=== PATIENT | female | born 1940 | race Caucasian/White ===

== ENCOUNTER 2022-04-04 12:44 | Inpatient (IN) | payer MEDICARE, MEDICAID ==
[~2022-04-04] VITALS: Ht 157.5 cm; Wt 58.5 kg
[2022-04-04] MEDS ORDERED: LORazepam 2 MG/ML VIAL ONE (12:50)
[2022-04-04 12:56] VITALS: BP_SYST 119
--- NOTE | 2022-04-04 12:56 | NUR ---
Placed in room 01 . Placed on athletic monitor, blood pressure machine and pulse oximeter. To gown for exam. Side rails up. Report given to NELLA Mares
[2022-04-04] MEDS ORDERED: LORazepam 2 MG/ML VIAL IVP ONE (13:00)
--- NOTE | 2022-04-04 13:00 | NUR ---
PATIENT BIBA FROM HOME WITH SEIZURE /SHAKING SINCE THIS MORNING, PLACE IN ROOM 1 ON LYFT DRIVER, EDP AT BEDSIDE FOR INITIAL ASSESSMENT, WILL CONTINUE TO MONITOR.
--- NOTE | 2022-04-04 13:15 | NUR ---
PATIENT WITH BLOOD IN MOUTH INDICATION OF BITE.
[2022-04-04] MEDS ORDERED: LEVO88TA5 PO (13:32)
[2022-04-04] MEDS ORDERED: MIRT-91 PO (13:32)
[2022-04-04] MEDS ORDERED: RIFA550T5 PO (13:32)
[2022-04-04] MEDS ORDERED: LIP40 PO (13:32)
[2022-04-04] MEDS ORDERED: LACT1TAB6 PO (13:32)
[2022-04-04] MEDS ORDERED: FERR-69 PO (13:32)
[2022-04-04] MEDS ORDERED: INSU100V38 SQ (13:32)
[2022-04-04] MEDS ORDERED: MELA5TAB12 PO (13:32)
[2022-04-04] MEDS ORDERED: FISH1CAP18 PO (13:32)
[2022-04-04] MEDS ORDERED: CYAN-25 PO (13:32)
[2022-04-04] MEDS ORDERED: MAGN400T10 PO (13:32)
[2022-04-04] MEDS ORDERED: CHOL100038 PO (13:32)
[2022-04-04] MEDS ORDERED: CIPR500T5 PO (13:32)
[2022-04-04] MEDS ORDERED: PANT20TA2 PO (13:32)
[2022-04-04] MEDS ORDERED: DICLOFENAC 1% TP (13:32)
[2022-04-04] MEDS ORDERED: GABA-529 PO (13:32)
[2022-04-04] MEDS ORDERED: LACT10SO6 PO (13:32)
[2022-04-04] MEDS ORDERED: ACET325T PO (13:32)
--- NOTE | 2022-04-04 13:32 | NUR ---
Medication reconciliation completed with information provided by LIST BROUGHT IN BY PT. Any prior medication reconciliation on file was reviewed and corrected.
--- NOTE | 2022-04-04 13:34 | NUR ---
PATIENT REMAINS IN BED ON CROSSING GUARD, WILL CONTINUE TO MONITOR.
[2022-04-04 13:37] LABS: BILIRUBIN,URINE NEGATIVE (NEGATIVE); BLOOD, URINE NEGATIVE (NEGATIVE); CLARITY/URINE CLEAR (CLEAR); COLOR,URINE YELLOW (YELLOW); GLUCOSE,URINE NEGATIVE (NEGATIVE); KETONES,URINE NEGATIVE (NEGATIVE); LEUKOCYTE ESTERASE ,URINE NEGATIVE (NEGATIVE); NITRITE, URINE NEGATIVE (NEGATIVE); PH,URINE 5.5 (5.0-8.0); PROTEIN URINE NEGATIVE (NEGATIVE); UROBILINOGEN,URINE 0.2 (0.2-1.0)
[2022-04-04 13:40] LABS: ANION GAP 9 (5-15); CALCIUM 8.3 mg/dL (8.4-11.0); CHLORIDE 106 mmol/L (98-107); CREATININE 2.04 mg/dL (0.55-1.30); GLUCOSE 117 mg/dL (70-99); UREA NITROGEN, BLOOD 28 mg/dL (8-21)
[2022-04-04 13:42] LABS: BASOPHILS % (AUTO) 0.5 % (0.0-2.0); EOSINOPHILS # (AUTO) 0.2 K/uL (0.0-0.4); EOSINOPHILS % (AUTO) 3.4 % (0.0-4.0); HEMATOCRIT 28.9 % (36-48); HEMOGLOBIN 9.8 g/dL (12.0-16.0); LYMPHOCYTES # (AUTO) 1.9 K/uL (1.0-5.5); LYMPHOCYTES % (AUTO) 32.8 % (20.5-51.5); MEAN CORPUSCULAR HEMOGLOBIN 38 pg (27-31); MEAN CORPUSCULAR HGB CONC 34 % (32-36); MEAN CORPUSCULAR VOLUME 111 fL (79.0-98.0); MONOCYTES # (AUTO) 0.5 K/uL (0.0-1.0); MONOCYTES % (AUTO) 8.5 % (1.7-9.3); NEUTROPHILS # (AUTO) 3.2 K/uL (1.8-7.7); NEUTROPHILS % (AUTO) 54.8 % (40.0-70.0); PLATELET COUNT (AUTO) 84 K/uL (130-430); RED CELL DISTRIBUTION WIDTH 16.8 % (9.0-15.0); WHITE BLOOD COUNT (AUTO) 5.9 K/uL (4.8-10.8)
[2022-04-04] MEDS ORDERED: NACL 0.9% 1,000 ML IV ONE ×2 (13:45→18:00)
--- NOTE | 2022-04-04 13:46 | NUR ---
X-RAY AT BEDSIDE.
[2022-04-04 13:47] LABS: ALANINE AMINOTRANSFERASE 21 U/L (12-78); ALBUMIN 2.6 g/dL (3.4-4.8); ASPARTATE AMINOTRANSFERASE 39 U/L (10-37); TOTAL BILIRUBIN 1.1 mg/dL (0.0-1.0)
[2022-04-04 13:53] LABS: BARBITURATE, URINE NEGATIVE (NEG <=200); BENZODIAZEPINE, URINE NEGATIVE (NEG <=150); CANNABINOID, URINE NEGATIVE (NEG <=50); COCAINE, URINE NEGATIVE (NEG <=150); METHAMPHETAMINES SCREEN,URINE NEGATIVE (NEG <=500); OPIATE, URINE NEGATIVE (NEG <=100); PHENCYCLIDINE SCREEN,URINE NEGATIVE (NEG <=25); UR TRICYCLIC ANTIDEPRESSANTS NEGATIVE (NEG <=300); URINE AMPHETAMINE NEGATIVE (NEG <=500); URINE METHADONE NEGATIVE (NEG <=200); URINE OXYCODONE SCREEN NEGATIVE (NEG <=100); URINE PROPOXYPHENE SCREEN NEGATIVE (NEG <=300)
[2022-04-04] MEDS ORDERED: FLUMAZENIL 0.1 MG/ML IVP ONE (14:00)
[2022-04-04] MEDS ORDERED: cefTRIAXone 1 GM IVPB PREMIX 50 ML IV ONE (14:15)
--- NOTE | 2022-04-04 17:27 | NUR ---
DAUGHTER AT BEDSIDE, AWAITING FOR EDP FOR DISPOSITION, WILL CONTINUE TO MONITOR.
--- NOTE | 2022-04-04 17:45 | NUR ---
CALL BACK FROM [place].
[2022-04-04] MEDS ORDERED: 0.45% NACL 1,000 ML IV ONE (18:00)
--- NOTE | 2022-04-04 18:16 | NUR ---
PATIENT ADMITTED TO DR MARTEL TO TELE.
--- NOTE | 2022-04-04 18:17 | NUR ---
Admit bed requested Patient will be admitted to care of . Admitted to TELE unit. Diagnosis HEPATIC ENCEPHALOPATHY Inpatient (Yes or No) YES Observation (Yes or No) NO Orientation concerns or request close to nursing station (Yes or No) Covid Status NEGATIVE On vent or bipap NO Isolation requirementNO Needs a sitter NO From Home (Yes or if No enter name of facility) YES Requires Dialysis (Yes or No)NO Med Rec Completed (Yes of No) Y
[2022-04-04 19:23] LABS: TRIGLYCERIDES 82 mg/dL (30-150)
[2022-04-04 19:24] LABS: CHOLESTEROL 82 mg/dL (<200); HDL CHOLESTEROL 41 mg/dL (>55); LDL CHOLESTEROL 35 mg/dL (<100)
[2022-04-04 22:30] VITALS: BP_SYST 154
--- NOTE | 2022-04-04 22:38 | NUR ---
Patient will be admitted to care of MD Mccarthy. Admitted to TELE unit. Will go to room 103B. Complete and up to date summary report printed. SBAR report given at bedside to NELLA Voss with opportunity for questions.
--- NOTE | 2022-04-04 22:41 | NUR ---
ADMISSION NOTE Received patient from ER via gurney. Patient admitted with diagnosis of HEPATIC ENCEPHALOPATHY. Patient is awake, alert, oriented X 2. Patient oriented to hospital room, call light, toileting, pain management and safety-teach back done. Patient informed that their room number is 103B. Personal belongings checked and Belongings List documented. Call light within reach.
[2022-04-04 22:42] VITALS: BP_SYST 154
--- NOTE | 2022-04-04 23:22 | NUR ---
CONSULTATION PAGED/CALLED Reason for Consultation: CIRRHOSIS Person Who was Notified: DAVINA Consulting Physician: ADRIAN WONG IS BROILER MANAGER Plant Sprayer Specialty: Ordering Physician: DELONTE
--- NOTE | 2022-04-04 23:23 | NUR ---
CONSULTATION PAGED/CALLED Reason for Consultation: CIRRHOSIS Person Who was Notified: DAVINA Consulting Physician: TERRI Caballero Junior Account Executive Specialty: Ordering Physician: DELONTE
--- NOTE | 2022-04-04 23:56 | NUR ---
PT DAUGHTER CELL # ELIEL TAPAN: [phone]
[2022-04-05] VITALS: BP_SYST 149
[2022-04-05 04:00] VITALS: BP_SYST 150
[2022-04-05] MEDS ORDERED: D5W 1,000 ML IV PRN (06:45)
[2022-04-05] MEDS ORDERED: DEXTROSE 50% JECT 50 ML DISP.SYRIN IVP PRN (06:45)
[2022-04-05] MEDS ORDERED: GLUCOSE (DEXTROSE) ORAL GEL -Adults PO PRN (06:45)
[2022-04-05 07:15] LABS: BASOPHILS % (AUTO) 0.5 % (0.0-2.0); EOSINOPHILS # (AUTO) 0.1 K/uL (0.0-0.4); EOSINOPHILS % (AUTO) 2.5 % (0.0-4.0); HEMATOCRIT 28.3 % (36-48); HEMOGLOBIN 9.6 g/dL (12.0-16.0); LYMPHOCYTES % (AUTO) 19.8 % (20.5-51.5); MEAN CORPUSCULAR HEMOGLOBIN 38 pg (27-31); MEAN CORPUSCULAR HGB CONC 34 % (32-36); MEAN CORPUSCULAR VOLUME 112 fL (79.0-98.0); MONOCYTES # (AUTO) 0.3 K/uL (0.0-1.0); MONOCYTES % (AUTO) 6.2 % (1.7-9.3); NEUTROPHILS # (AUTO) 3.7 K/uL (1.8-7.7); PLATELET COUNT (AUTO) 72 K/uL (130-430); RED BLOOD CELL COUNT(AUTO) 2.52 MIL/uL (4.2-6.2); RED CELL DISTRIBUTION WIDTH 16.8 % (9.0-15.0); WHITE BLOOD COUNT (AUTO) 5.2 K/uL (4.8-10.8)
[2022-04-05 07:47] LABS: ALANINE AMINOTRANSFERASE 23 U/L (12-78); ALBUMIN 2.5 g/dL (3.4-4.8); ANION GAP 10 (5-15); ASPARTATE AMINOTRANSFERASE 43 U/L (10-37); CHLORIDE 113 mmol/L (98-107); CREATININE 1.23 mg/dL (0.55-1.30); GLUCOSE 114 mg/dL (70-99); TOTAL BILIRUBIN 0.9 mg/dL (0.0-1.0); UREA NITROGEN, BLOOD 23 mg/dL (8-21)
[2022-04-05 08:00] VITALS: BP_SYST 126
--- NOTE | 2022-04-05 08:00 | NUR ---
Initial Notes Patient is Aox2. Confused. resting and awake. No ss of distress noted. Breathing is even and nonlabored, on room air. Denies pain. No SOB noted. No facial grimace noted. Patient is NPO pending swallow evaluation. IV to right hand patent. 20G. Bed is locked, alarm on, and at lowest position. Call light within reach.
[2022-04-05] MEDS: LACTULOSE 20 GM/30 ML UDC PO SCH ×4 (09:00→20:44)
[2022-04-05 10:03] LABS: CHOLESTEROL 95 mg/dL (<200); HDL CHOLESTEROL 47 mg/dL (>55); LDL CHOLESTEROL 38 mg/dL (<100); TRIGLYCERIDES 83 mg/dL (30-150)
[2022-04-05] MEDS: RIFAXIMIN 550 MG TABLET PO ONE ×2 (10:22→12:46)
[2022-04-05 11:24] VITALS: BP_SYST 124
--- NOTE | 2022-04-05 11:45 | NUR ---
Notes Blood glucose was 93 mg/ dL. No coverage needed. Iv patent. Patient is resting. No ss of distress noted. remains NPO. Safety precautions in place and call light within reach.
--- NOTE | 2022-04-05 12:12 | NUR ---
Notes Dr. Soler came to see patient at bedside. New orders received. soil field technician at bedside.
[2022-04-05] MEDS: D5NS 1,000 ML IV SCH (12:45)
--- NOTE | 2022-04-05 13:00 | NUR ---
Notes Ultrasound complete. Patient has been repositioned. HOB elevated. Bedside swallow evaluation. Patient tolerated well. No cough when taking a sip of water from spoon, cup, and straw. Remains NPO. IVF running. Daughter at bedside. Educated daughter on reason for NPO. Family verbalized understanding. Daughter wants mom to be Modified Code Status, DNI. Paperwork filled out and in chart.
[2022-04-05] MEDS ORDERED: HYDROcodone/ACETAMIN 5-325 MG TAB (NORCO/ VICODIN) PO PRN ×2 (15:15→16:15)
[2022-04-05 15:31] VITALS: BP_SYST 113
--- NOTE | 2022-04-05 16:08 | NUR ---
CONSULTATION PAGED REASON FOR CONSULTATION:PACEMAKER EVAL WAS CONSULT CALLED?Y PERSON WHO WAS NOTIFIED:NAYELI CONSULTING PHYSICIAN:SHU TORRES BENCH PRECISION ASSEMBLER SPECIALTY:CARDIO BENCH PRECISION ASSEMBLER PHONE NUMBER:[phone] REQUESTING PHYSICIAN:JUNI CASANOVA NP
--- NOTE | 2022-04-05 16:12 | NUR ---
CONSULTATION PAGED REASON FOR CONSULTATION:IFEANYI WAS CONSULT CALLED?Y PERSON WHO WAS NOTIFIED:SPENSER CONSULTING PHYSICIAN:MIRAIM DAVE SUPERVISOR FINISHING DEPARTMENT SPECIALTY:NEPHRO SUPERVISOR FINISHING DEPARTMENT PHONE NUMBER:[phone] REQUESTING PHYSICIAN:JUNI CASANOVA NP
--- NOTE | 2022-04-05 17:00 | NUR ---
Notes Patient is resting, eyes closed. No ss of distress noted. Breathing is even and nonlabored, on room air. Patient denies pain. No SOB noted. IVF running, IV patent. family at bedside. Safety precautions in place and call light within reach.
--- NOTE | 2022-04-05 17:18 | NUR ---
ST EVALUATION COMPLETED. ST TX NOT INDICATED AT THIS TIME. RECOMMEND PO DIET OF PUREE/THIN LIQUIDS. 1:1 FEEDER AND FULL ASPIRATION PRECAUTIONS. CRUSH ALL CRUSHABLE MEDS IN APPLESAUCE.
--- NOTE | 2022-04-05 18:05 | NUR ---
Notes Spoke with Dr. Bruno. aware of patient's status. Per MD, no consultation needed at this time.
--- NOTE | 2022-04-05 19:37 | NUR ---
Closing Notes Patient is eating dinner. No ss of distress noted. breathing is even and non labored, on room air. Patient denies pain. Patient is eating dinner. HOB elevated. IVF running. IV patent. Patient is stable. All needs met. Family at bedside. Bed is locked, alarm on, and at lowest position. Call light within reach. Endorsed care to NELLA Vazquez.
[2022-04-05 20:00] VITALS: BP_SYST 104
[2022-04-05] MEDS: MIRTAZAPINE 15 MG TABLET PO SCH (20:44)
[2022-04-05] MEDS: ATORVASTATIN 20 MG TABLET PO SCH (20:44)
[2022-04-05] MEDS: GABAPENTIN 100 MG CAPSULE PO SCH (20:44)
[2022-04-05] MEDS: RIFAXIMIN 550 MG TABLET PO SCH (20:44)
[2022-04-05] MEDS ORDERED: RIFAXIMIN 550 MG TABLET PO SCH (21:00)
[2022-04-05] MEDS: LORazepam 2 MG/ML VIAL IVP PRN (21:13)
[2022-04-05] MEDS: INSULIN REGULAR, HUMAN 100 UNITS/ML, 3 ML VIAL (humuLIN R) SUBCUT PRN (21:14)
[2022-04-06] VITALS: BP_SYST 110
[2022-04-06 04:00] VITALS: BP_SYST 118
[2022-04-06] MEDS: D5NS 1,000 ML IV SCH ×2 (04:03→16:32)
[2022-04-06] MEDS: LEVOTHYROXINE SODIUM 0.088 MG TABLET PO SCH (06:19)
[2022-04-06] MEDS: INSULIN REGULAR, HUMAN 100 UNITS/ML, 3 ML VIAL (humuLIN R) SUBCUT PRN ×3 (06:44→16:37)
[2022-04-06 07:06] LABS: BASOPHILS % (AUTO) 0.5 % (0.0-2.0); EOSINOPHILS # (AUTO) 0.2 K/uL (0.0-0.4); EOSINOPHILS % (AUTO) 5.5 % (0.0-4.0); HEMATOCRIT 25.8 % (36-48); HEMOGLOBIN 8.6 g/dL (12.0-16.0); MEAN CORPUSCULAR HEMOGLOBIN 38 pg (27-31); MEAN CORPUSCULAR HGB CONC 34 % (32-36); MEAN CORPUSCULAR VOLUME 113 fL (79.0-98.0); MONOCYTES # (AUTO) 0.4 K/uL (0.0-1.0); MONOCYTES % (AUTO) 10.5 % (1.7-9.3); PLATELET COUNT (AUTO) 62 K/uL (130-430); RED BLOOD CELL COUNT(AUTO) 2.27 MIL/uL (4.2-6.2); RED CELL DISTRIBUTION WIDTH 17.5 % (9.0-15.0); WHITE BLOOD COUNT (AUTO) 3.7 K/uL (4.8-10.8)
[2022-04-06 07:15] LABS: ANION GAP 5 (5-15); CALCIUM 7.5 mg/dL (8.4-11.0); CHLORIDE 116 mmol/L (98-107); CREATININE 1.52 mg/dL (0.55-1.30); GLUCOSE 192 mg/dL (70-99); UREA NITROGEN, BLOOD 21 mg/dL (8-21)
[2022-04-06 07:22] LABS: LIPASE 99 U/L (73-393); THYROID STIMULATING HORMONE 0.73 uIu/mL (0.34-4.82)
[2022-04-06 08:00] VITALS: BP_SYST 137
--- NOTE | 2022-04-06 08:00 | NUR ---
Initial Notes Patient is AOx2. Confused. Patient is very sleepy. Arouses to name and tapping shoulder. No ss of distress noted. breathing is even and nonlabored, on 2 L O2 via NC. No SOB noted. Vital signs obtained, as documented. NO facial grimace noted. IVF running. HOb elevated. Bed is locked, alarm on, and at lowest position. Call light within reach.
[2022-04-06 08:44] LABS: NEUTROPHILS % (AUTO) 55.5 % (40.0-70.0)
[2022-04-06] MEDS: MAGNESIUM OXIDE 400 MG TABLET PO SCH (09:00)
[2022-04-06] MEDS: RIFAXIMIN 550 MG TABLET PO SCH ×2 (09:00→21:15)
[2022-04-06] MEDS: LACTULOSE 20 GM/30 ML UDC PO SCH ×3 (09:00→21:15)
[2022-04-06] MEDS: GABAPENTIN 100 MG CAPSULE PO SCH ×2 (09:01→21:15)
[2022-04-06] MEDS: CYANOCOBALAMIN (VITAMIN B-12) 1,000 MCG TABLET PO SCH (09:01)
[2022-04-06] MEDS: CHOLECALCIFEROL (VITAMIN D3) 2,000 UNIT TABLET PO SCH (09:01)
[2022-04-06 11:06] LABS: HEPATITIS A AB, IgM Negative (Negative); HEPATITIS B CORE AB, IgM Negative (Negative); HEPATITIS B SURFACE AG Negative (Negative)
[2022-04-06 11:24] VITALS: BP_SYST 116
--- NOTE | 2022-04-06 12:00 | NUR ---
NOTES PATIENT IS VERY SLEEPY, DID NOT EAT LUNCH. IVF RUNNING. HOB ELEVATED. NO SS OF DISTRESS NOTED. BREATHING IS EVEN AND NONLABORED, ON 2 L O2 VIA NC. SAFETY PRECAUTIONS IN PLACE AND CALL LIGHT WITHIN REACH.
--- NOTE | 2022-04-06 14:28 | NUR ---
MD DR. MARTEL CAME TO SEE PATIENT. MADE OF AWARE OF FAMILY REQUEST FOR MODIFIED CODE STATUS, DO NOT INTUBATE.
[2022-04-06 15:27] VITALS: BP_SYST 125
--- NOTE | 2022-04-06 17:00 | NUR ---
NOTES PATIENT APPEARS TO BE ASLEEP, EYES CLOSED. RESPONDS WHEN TOUCHED OR BY NAME. NO SS OF DISTRESS NOTED. BREATHING IS AND NONLABORED, ON 2 L O2 VIA NC. IVF RUNNING, IV PATENT. BED IS LOCKED, ALARM ON, AND AT LOWEST POSITION. CALL LIGHT WITHIN REACH.
[2022-04-06 20:00] VITALS: BP_SYST 101
--- NOTE | 2022-04-06 20:02 | NUR ---
Closing Notes Patient is resting. Family at bedside. No ss of distress noted. No facial grimace noted. Breathing is even and nonlabored, on 2 L O2 via NC. NO SOB noted. IVF running. IV patent. All needs met. Patient stable. Bed is locked, alarm on, and at lowest position. Call light within reach.
[2022-04-06] MEDS: MIRTAZAPINE 15 MG TABLET PO SCH (21:15)
[2022-04-06] MEDS: ATORVASTATIN 20 MG TABLET PO SCH (21:15)
[2022-04-07] VITALS: BP_SYST 121
[2022-04-07] MEDS: D5NS 1,000 ML IV SCH ×2 (00:05→13:23)
[2022-04-07 04:00] VITALS: BP_SYST 118
[2022-04-07] MEDS: LEVOTHYROXINE SODIUM 0.088 MG TABLET PO SCH (06:11)
[2022-04-07] MEDS: INSULIN REGULAR, HUMAN 100 UNITS/ML, 3 ML VIAL (humuLIN R) SUBCUT PRN ×3 (06:49→18:54)
[2022-04-07 07:39] LABS: BASOPHILS % (AUTO) 0.6 % (0.0-2.0); EOSINOPHILS # (AUTO) 0.2 K/uL (0.0-0.4); EOSINOPHILS % (AUTO) 4.9 % (0.0-4.0); HEMATOCRIT 25.4 % (36-48); HEMOGLOBIN 8.5 g/dL (12.0-16.0); LYMPHOCYTES # (AUTO) 0.9 K/uL (1.0-5.5); LYMPHOCYTES % (AUTO) 26.1 % (20.5-51.5); MEAN CORPUSCULAR HEMOGLOBIN 38 pg (27-31); MEAN CORPUSCULAR HGB CONC 34 % (32-36); MEAN CORPUSCULAR VOLUME 113 fL (79.0-98.0); MONOCYTES # (AUTO) 0.3 K/uL (0.0-1.0); MONOCYTES % (AUTO) 8.4 % (1.7-9.3); PLATELET COUNT (AUTO) 56 K/uL (130-430); RED BLOOD CELL COUNT(AUTO) 2.26 MIL/uL (4.2-6.2); RED CELL DISTRIBUTION WIDTH 17.6 % (9.0-15.0); WHITE BLOOD COUNT (AUTO) 3.4 K/uL (4.8-10.8)
[2022-04-07 08:20] LABS: ALANINE AMINOTRANSFERASE 23 U/L (12-78); ALBUMIN 1.9 g/dL (3.4-4.8); ANION GAP 8 (5-15); ASPARTATE AMINOTRANSFERASE 37 U/L (10-37); CALCIUM 7.7 mg/dL (8.4-11.0); CREATININE 1.49 mg/dL (0.55-1.30); GLUCOSE 202 mg/dL (70-99); PHOSPHORUS 2.4 mg/dL (2.7-4.5); TOTAL BILIRUBIN 0.7 mg/dL (0.0-1.0); UREA NITROGEN, BLOOD 19 mg/dL (8-21)
[2022-04-07 09:04] LABS: CHLORIDE 120 mmol/L (98-107)
[2022-04-07] MEDS: LACTULOSE 20 GM/30 ML UDC PO SCH ×3 (10:20→22:52)
[2022-04-07] MEDS: RIFAXIMIN 550 MG TABLET PO SCH ×3 (10:21→22:59)
[2022-04-07] MEDS: CHOLECALCIFEROL (VITAMIN D3) 2,000 UNIT TABLET PO SCH (10:22)
[2022-04-07] MEDS: GABAPENTIN 100 MG CAPSULE PO SCH ×3 (10:22→22:59)
[2022-04-07] MEDS: MAGNESIUM OXIDE 400 MG TABLET PO SCH (10:23)
[2022-04-07] MEDS: CYANOCOBALAMIN (VITAMIN B-12) 1,000 MCG TABLET PO SCH (10:23)
[2022-04-07 11:39] VITALS: BP_SYST 151
--- NOTE | 2022-04-07 12:26 | NUR ---
Director Embalmer CROP SETTING OUT MACHINE OPERATOR recevied a referral for pt. who has been ref. to [facility], . CROP SETTING OUT MACHINE OPERATOR called Matilde ashley who stated she spoke to Pavithra from [place] and stated the rep was just asking questions re. pt. Matilde stated she was not sure she was going to move forward with hospice and does not even know why Dr. Mccarthy referred pt. to hospice. CROP SETTING OUT MACHINE OPERATOR stated she look into this and get back to her. CROP SETTING OUT MACHINE OPERATOR called and left a message for Pavithra at [facility].
[2022-04-07 15:23] VITALS: BP_SYST 128
--- NOTE | 2022-04-07 19:00 | NUR ---
Dr. Miller, covering for Dr. Pfeiffer made rounds and ordered to decrease the rate of IVF to 100 ml/hr and labs. spoke to Marycarmen, patient's daughter and explained to the abnormal lab values and updated on patient's current condition.
--- NOTE | 2022-04-07 19:30 | NUR ---
Opening note- met pt and family at bedside. pt kiswahili speaking and able to follow command. BUE with edema and ecchymosis. IVF on Rt forearm # 22 g- patent. V/s stable afebrile.
[2022-04-07 20:00] VITALS: BP_SYST 120
[2022-04-07] MEDS: MIRTAZAPINE 15 MG TABLET PO SCH (22:59)
[2022-04-07] MEDS: ATORVASTATIN 20 MG TABLET PO SCH (23:04)
--- NOTE | 2022-04-07 23:13 | NUR ---
CONSULTATION CALLED FOR FOR CONSULT OF HIGH TROPONIN ORDER BY DR. MARTEL SPOKE WITH GLENN
[2022-04-08 00:27] VITALS: BP_SYST 129
[2022-04-08] MEDS: D5NS 1,000 ML IV SCH (03:01)
[2022-04-08] MEDS: LEVOTHYROXINE SODIUM 0.088 MG TABLET PO SCH (06:10)
--- NOTE | 2022-04-08 06:12 | NUR ---
Closing note- pt had 4 times large BM. Pt complaints with medication and she's on lactulose 60 ml oral TID. Straight catheter done to obtain urine sample- 600 ml output. D5NS at 100 ml/hr. IAD on perineal area and sacral area. Given pericare after each BM and applied protective cream. BS- 160 this am.
[2022-04-08 07:07] LABS: BASOPHILS % (AUTO) 0.7 % (0.0-2.0); EOSINOPHILS # (AUTO) 0.2 K/uL (0.0-0.4); EOSINOPHILS % (AUTO) 5.3 % (0.0-4.0); HEMATOCRIT 29.4 % (36-48); HEMOGLOBIN 9.8 g/dL (12.0-16.0); LYMPHOCYTES # (AUTO) 1.1 K/uL (1.0-5.5); MEAN CORPUSCULAR HEMOGLOBIN 38 pg (27-31); MEAN CORPUSCULAR HGB CONC 33 % (32-36); MEAN CORPUSCULAR VOLUME 114 fL (79.0-98.0); MONOCYTES # (AUTO) 0.4 K/uL (0.0-1.0); MONOCYTES % (AUTO) 8.3 % (1.7-9.3); NEUTROPHILS # (AUTO) 2.7 K/uL (1.8-7.7); NEUTROPHILS % (AUTO) 61.7 % (40.0-70.0); PLATELET COUNT (AUTO) 56 K/uL (130-430); RED BLOOD CELL COUNT(AUTO) 2.57 MIL/uL (4.2-6.2); RED CELL DISTRIBUTION WIDTH 18.2 % (9.0-15.0); WHITE BLOOD COUNT (AUTO) 4.4 K/uL (4.8-10.8)
[2022-04-08 07:28] LABS: ALANINE AMINOTRANSFERASE 25 U/L (12-78); ASPARTATE AMINOTRANSFERASE 41 U/L (10-37); CALCIUM 8.3 mg/dL (8.4-11.0); CREATININE 1.47 mg/dL (0.55-1.30); GLUCOSE 186 mg/dL (70-99); TOTAL BILIRUBIN 0.9 mg/dL (0.0-1.0); UREA NITROGEN, BLOOD 16 mg/dL (8-21)
--- NOTE | 2022-04-08 07:31 | NUR ---
PHYSICAL THERAPY CO-SIGN The Physical Therapy Progress Notes documented by Psychodramatist have been reviewed. Reviewed/Co-Signed by: Juan F Carmona Documentation Done by: ANUSHKA WINKLER PTA Addendum: 04/08/22 at 0731 by Juan F Carmona PT Amended: Links added.
[2022-04-08 07:50] LABS: ANION GAP 9 (5-15)
[2022-04-08 07:59] LABS: CHLORIDE 123 mmol/L (98-107)
--- NOTE | 2022-04-08 09:03 | NUR ---
Called Elena Handy and informed of the Chloride level of 123 with order to change IVF. Order made and noted.
[2022-04-08] MEDS: MAGNESIUM OXIDE 400 MG TABLET PO SCH (10:18)
[2022-04-08] MEDS: LACTULOSE 20 GM/30 ML UDC PO SCH ×3 (10:18→21:19)
[2022-04-08] MEDS: RIFAXIMIN 550 MG TABLET PO SCH (10:18)
[2022-04-08] MEDS: CHOLECALCIFEROL (VITAMIN D3) 2,000 UNIT TABLET PO SCH (10:19)
[2022-04-08] MEDS: CYANOCOBALAMIN (VITAMIN B-12) 1,000 MCG TABLET PO SCH (10:19)
[2022-04-08] MEDS: GABAPENTIN 100 MG CAPSULE PO SCH ×2 (10:19→21:22)
[2022-04-08] MEDS: D5W 1,000 ML IV SCH ×2 (10:21→20:06)
[2022-04-08 11:24] VITALS: BP_SYST 135
[2022-04-08] MEDS: INSULIN REGULAR, HUMAN 100 UNITS/ML, 3 ML VIAL (humuLIN R) SUBCUT PRN ×3 (12:36→21:31)
[2022-04-08 15:25] VITALS: BP_SYST 140
--- NOTE | 2022-04-08 18:30 | NUR ---
Elena Handy came and made rounds and ordered labs for AM.
--- NOTE | 2022-04-08 18:45 | NUR ---
Dr. Mccarthy came and made rounds. stated that he will call patient's daughter, Marycarmen to give her an update on patient's condition.
[2022-04-08 20:00] VITALS: BP_SYST 111
--- NOTE | 2022-04-08 20:00 | NUR ---
Opening note- pt's sleeping and grandson at bedside. No s/sx of any distress.
[2022-04-08] MEDS: ATORVASTATIN 20 MG TABLET PO SCH (21:21)
[2022-04-08] MEDS: MIRTAZAPINE 15 MG TABLET PO SCH (21:28)
[2022-04-09 01:15] VITALS: BP_SYST 151
--- NOTE | 2022-04-09 05:57 | NUR ---
Closing note- pt had total 3 times diarrhea at night. Pericare done after each bm and applied barrier cream. Cont D5W at 100 ml/hr.
[2022-04-09] MEDS: D5W 1,000 ML IV SCH ×2 (06:20→18:33)
[2022-04-09] MEDS: LEVOTHYROXINE SODIUM 0.088 MG TABLET PO SCH (06:20)
[2022-04-09] MEDS: INSULIN REGULAR, HUMAN 100 UNITS/ML, 3 ML VIAL (humuLIN R) SUBCUT PRN ×3 (06:57→18:30)
--- NOTE | 2022-04-09 08:00 | NUR ---
RN NOTES AWAKE, WEAK IN APPEARANCE, DENIES ANY PAIN. SR/PACED ON THE MONITOR.
[2022-04-09 08:19] LABS: CREATININE, URINE 132.2 mg/dL
[2022-04-09] MEDS: RIFAXIMIN 550 MG TABLET PO SCH ×2 (08:44→22:55)
[2022-04-09] MEDS: LACTULOSE 20 GM/30 ML UDC PO SCH ×3 (08:44→22:54)
[2022-04-09] MEDS: CHOLECALCIFEROL (VITAMIN D3) 2,000 UNIT TABLET PO SCH (08:46)
[2022-04-09] MEDS: CYANOCOBALAMIN (VITAMIN B-12) 1,000 MCG TABLET PO SCH (08:46)
--- NOTE | 2022-04-09 10:05 | NUR ---
INTERNET SALES CONSULTANT ACSW Shaina contacted Pavithra with [facility] to obtain update on hospice services. According to Pavithra, she was awaiting contact from patient's daughter Marycarmen to obtain decision. ACSW requested ongoing updates when available ACSW will continue to be available as needed
[2022-04-09] MEDS: MAGNESIUM OXIDE 400 MG TABLET PO SCH (10:09)
[2022-04-09 11:30] VITALS: BP_SYST 147
--- NOTE | 2022-04-09 11:30 | NUR ---
RN NOTES DAUGHTER AT BEDSIDE, UPDATED ON PATIENT PRESENT CONDITION.
--- NOTE | 2022-04-09 13:30 | NUR ---
RN NOTES SPOKE DIETARY RE: CALORIE COUNT ORDER, NO DIETITIAN AVAILABLE TODAY. WILL NOTIFY DIETITIAN WHEN AVAILABLE.
[2022-04-09 14:09] LABS: BASOPHILS % (AUTO) 0.5 % (0.0-2.0); EOSINOPHILS # (AUTO) 0.3 K/uL (0.0-0.4); EOSINOPHILS % (AUTO) 5.8 % (0.0-4.0); HEMATOCRIT 28.6 % (36-48); HEMOGLOBIN 9.6 g/dL (12.0-16.0); LYMPHOCYTES # (AUTO) 1.4 K/uL (1.0-5.5); LYMPHOCYTES % (AUTO) 24.9 % (20.5-51.5); MEAN CORPUSCULAR HEMOGLOBIN 38 pg (27-31); MEAN CORPUSCULAR HGB CONC 34 % (32-36); MEAN CORPUSCULAR VOLUME 113 fL (79.0-98.0); MONOCYTES # (AUTO) 0.5 K/uL (0.0-1.0); MONOCYTES % (AUTO) 9.2 % (1.7-9.3); NEUTROPHILS # (AUTO) 3.4 K/uL (1.8-7.7); NEUTROPHILS % (AUTO) 59.6 % (40.0-70.0); PLATELET COUNT (AUTO) 57 K/uL (130-430); RED BLOOD CELL COUNT(AUTO) 2.54 MIL/uL (4.2-6.2); RED CELL DISTRIBUTION WIDTH 17.2 % (9.0-15.0); WHITE BLOOD COUNT (AUTO) 5.6 K/uL (4.8-10.8)
[2022-04-09 14:41] LABS: ALANINE AMINOTRANSFERASE 39 U/L (12-78); ANION GAP 6 (5-15); ASPARTATE AMINOTRANSFERASE 63 U/L (10-37); CALCIUM 8.5 mg/dL (8.4-11.0); CHLORIDE 115 mmol/L (98-107); CREATININE 1.36 mg/dL (0.55-1.30); GLUCOSE 248 mg/dL (70-99); TOTAL BILIRUBIN 1.1 mg/dL (0.0-1.0); UREA NITROGEN, BLOOD 14 mg/dL (8-21)
[2022-04-09 15:23] VITALS: BP_SYST 147
--- NOTE | 2022-04-09 17:21 | NUR ---
ST EVALUATION COMPLETED. ST TX NOT INDICATED AT THIS TIME. RECOMMEND PO DIET OF PUREE/THIN LIQUID. 1:1 FEEDER AND FULL ASPIRATION PRECAUTIONS.
--- NOTE | 2022-04-09 19:00 | NUR ---
RN NOTES SEEN BY DR. MARTEL, WITH ORDERS.
[2022-04-09] MEDS: GABAPENTIN 100 MG CAPSULE PO SCH (22:55)
[2022-04-09] MEDS: MIRTAZAPINE 15 MG TABLET PO SCH (22:55)
[2022-04-09] MEDS: ATORVASTATIN 20 MG TABLET PO SCH (22:56)
[2022-04-10 00:10] VITALS: BP_SYST 134
[2022-04-10] MEDS: D5W 1,000 ML IV SCH ×3 (01:15→21:15)
[2022-04-10] MEDS: LEVOTHYROXINE SODIUM 0.088 MG TABLET PO SCH (07:00)
[2022-04-10 07:01] LABS: BASOPHILS % (AUTO) 0.2 % (0.0-2.0); EOSINOPHILS % (AUTO) 0.5 % (0.0-4.0); HEMATOCRIT 30.3 % (36-48); HEMOGLOBIN 10.2 g/dL (12.0-16.0); LYMPHOCYTES # (AUTO) 0.6 K/uL (1.0-5.5); LYMPHOCYTES % (AUTO) 9.6 % (20.5-51.5); MEAN CORPUSCULAR HEMOGLOBIN 38 pg (27-31); MEAN CORPUSCULAR HGB CONC 34 % (32-36); MEAN CORPUSCULAR VOLUME 113 fL (79.0-98.0); MONOCYTES # (AUTO) 0.5 K/uL (0.0-1.0); MONOCYTES % (AUTO) 8.6 % (1.7-9.3); NEUTROPHILS % (AUTO) 81.1 % (40.0-70.0); PLATELET COUNT (AUTO) 59 K/uL (130-430); RED BLOOD CELL COUNT(AUTO) 2.69 MIL/uL (4.2-6.2); WHITE BLOOD COUNT (AUTO) 6.1 K/uL (4.8-10.8)
--- NOTE | 2022-04-10 07:30 | NUR ---
OPENING NOTE PT IN BED, SLEEPING WITH 2L O2 VIA NC. NO S/S OF PAIN OR DISCOMFORT. CALL LIGHT WITHIN REACH. BED IS LOCKED AND AT LOW POSITION. WILL CONT TO MONITOR
[2022-04-10 07:39] LABS: ANION GAP 11 (5-15); CALCIUM 8.7 mg/dL (8.4-11.0); CHLORIDE 110 mmol/L (98-107); CREATININE 1.49 mg/dL (0.55-1.30); GLUCOSE 277 mg/dL (70-99); UREA NITROGEN, BLOOD 17 mg/dL (8-21)
[2022-04-10 07:40] LABS: ALANINE AMINOTRANSFERASE 55 U/L (12-78); ALBUMIN 2.2 g/dL (3.4-4.8); ASPARTATE AMINOTRANSFERASE 87 U/L (10-37); PHOSPHORUS 2.1 mg/dL (2.7-4.5); TOTAL BILIRUBIN 1.8 mg/dL (0.0-1.0)
[2022-04-10 08:00] VITALS: BP_SYST 139
[2022-04-10 08:31] LABS: RED CELL DISTRIBUTION WIDTH 16.9 % (9.0-15.0)
--- NOTE | 2022-04-10 09:23 | NUR ---
RECEIVED NEW ORDER FROM DR. MARTEL
--- NOTE | 2022-04-10 10:30 | NUR ---
NOTES; UNABLE TO INITIATE PIV X2, CHARGE NURSE CALLED ER. NURSE TO INITIATE PIV. FLUSHED 10CC NS, BLOOD RETURN NOTED. STARTED IFV ORDERED. NO IV INFILTRATION OR INFECTION NOTED.
[2022-04-10] MEDS: INSULIN REGULAR, HUMAN 100 UNITS/ML, 3 ML VIAL (humuLIN R) SUBCUT PRN ×3 (10:58→21:33)
[2022-04-10 11:24] VITALS: BP_SYST 152
--- NOTE | 2022-04-10 11:30 | NUR ---
NOTES; IV PUMP CONSTANTLY SHOWS HIGH PRESSURE. FLUSHED WITH 10CC NS, FELT MODERATE RESISTANCE. NO S/S IV INFILTRATION OR INFECTION NOTED.
[2022-04-10] MEDS: GABAPENTIN 100 MG CAPSULE PO SCH ×2 (12:03→21:32)
[2022-04-10] MEDS: CYANOCOBALAMIN (VITAMIN B-12) 1,000 MCG TABLET PO SCH (12:03)
[2022-04-10] MEDS: MAGNESIUM OXIDE 400 MG TABLET PO SCH (12:03)
[2022-04-10] MEDS: LACTULOSE 20 GM/30 ML UDC PO SCH ×3 (12:03→21:31)
[2022-04-10] MEDS: RIFAXIMIN 550 MG TABLET PO SCH ×2 (12:03→21:31)
[2022-04-10] MEDS: CHOLECALCIFEROL (VITAMIN D3) 2,000 UNIT TABLET PO SCH (12:03)
[2022-04-10] MEDS: ONDANSETRON HCL 4 MG/2 ML VIAL IVP PRN (12:06)
--- NOTE | 2022-04-10 13:30 | NUR ---
NOTES; RECEIVED NEW ORDER FROM :CENTRAL LINE TO IJ REPLACEMENT FOR TPN. ONCE PT GETS TPN, DECREASE IFV TO 60ML/HR.
--- NOTE | 2022-04-10 14:30 | NUR ---
NOTES; SPOKE WITH DR. MARTEL THAT PT'S FAMILY REQUESTS FOR UPDATE. PROVIDED DTR'S PHONE NUMBER TO
--- NOTE | 2022-04-10 14:35 | NUR ---
NOTES; MADE AWARE REGARDING 'S ORDER.
--- NOTE | 2022-04-10 14:47 | NUR ---
pt was seen for dysphagia. pt was able to safely swallow ms diet with thin liquid without s/s of aspiration. recommendation ms diet with thin liquid
--- NOTE | 2022-04-10 15:00 | NUR ---
NOTES; DR. NEVILLE CALLED, HE IS NOT ABLE TO COME IN. HE MAY OR MAY NOT BE ABLE TO COME IN TMR. Addendum: 04/10/22 at 1936 by Siena Goss RN SAID" I AM NOT THE ONLY ONE WHO CAN DO THIS."
--- NOTE | 2022-04-10 15:30 | NUR ---
NOTES; PT NOTIFIED NURSE THAT PT WAS 99% AT ROOM AIR. PT IS NO MORE O2. NO S/S SOB. WILL CONT TO MONITOR
[2022-04-10 15:35] VITALS: BP_SYST 149
--- NOTE | 2022-04-10 16:00 | NUR ---
NOTES; SINCE CANNOT COME IN TO DO CENTRAL LINE PLACEMENT, CALLED . DR. AGUIRRE SAYS HE IS NOT ONCVALERIANO. Addendum: 04/10/22 at 1937 by Siena Goss RN NOTES; SINCE CANNOT COME IN TO DO CENTRAL LINE PLACEMENT TODAY, CALLED . DR. AGUIRRE SAYS HE IS NOT ONCVALERIANO.
--- NOTE | 2022-04-10 19:20 | NUR ---
CLOSING NOTE PT IN BED,RESTING. NO ACUTE DISTRESS NOTED. BED IS LOCKED AND AT LOW POSITION. ENCOURAGED TO USE CALL LIGHT FOR ASSISTANCE. ENDORSED CARE TO TAPE CUTTING MACHINE OPERATOR NURSE.
--- NOTE | 2022-04-10 19:28 | NUR ---
NOTES; CALLED 'S OFFICE. NO COMMUNITY RELATIONS DIRECTOR, FULL VOICE BOX. Addendum: 04/10/22 at 1937 by Siena Goss RN DR.HARRY MARTINEZ.
--- NOTE | 2022-04-10 19:45 | NUR ---
Alert/oriented x3 lower back pain positional refused for pain medication, explained medication plan of care regarding central line insertion indication possible TPN infusion,patient hard stick verbalized understanding, perineal care given repositioned
[2022-04-10 20:02] VITALS: BP_SYST 139
[2022-04-10] MEDS: ATORVASTATIN 20 MG TABLET PO SCH (21:31)
[2022-04-10] MEDS: MIRTAZAPINE 15 MG TABLET PO SCH (21:32)
[2022-04-11 00:09] VITALS: BP_SYST 145
--- NOTE | 2022-04-11 02:15 | NUR ---
GI Had 4x loose stool yellow color . camden anal red rashes wash with soap/water pat/dry,repositioned.
[2022-04-11] MEDS: INSULIN REGULAR, HUMAN 100 UNITS/ML, 3 ML VIAL (humuLIN R) SUBCUT PRN ×4 (06:12→20:56)
[2022-04-11] MEDS: LEVOTHYROXINE SODIUM 0.088 MG TABLET PO SCH (06:15)
[2022-04-11 06:53] LABS: BASOPHILS % (AUTO) 0.3 % (0.0-2.0); EOSINOPHILS # (AUTO) 0.2 K/uL (0.0-0.4); EOSINOPHILS % (AUTO) 3.1 % (0.0-4.0); HEMATOCRIT 29.6 % (36-48); LYMPHOCYTES # (AUTO) 1.2 K/uL (1.0-5.5); MEAN CORPUSCULAR HEMOGLOBIN 38 pg (27-31); MEAN CORPUSCULAR HGB CONC 34 % (32-36); MEAN CORPUSCULAR VOLUME 111 fL (79.0-98.0); MONOCYTES # (AUTO) 0.5 K/uL (0.0-1.0); MONOCYTES % (AUTO) 10.3 % (1.7-9.3); NEUTROPHILS % (AUTO) 61.3 % (40.0-70.0); PLATELET COUNT (AUTO) 56 K/uL (130-430); RED BLOOD CELL COUNT(AUTO) 2.66 MIL/uL (4.2-6.2); RED CELL DISTRIBUTION WIDTH 16.8 % (9.0-15.0)
[2022-04-11 07:53] LABS: ALANINE AMINOTRANSFERASE 49 U/L (12-78); ALBUMIN 2.1 g/dL (3.4-4.8); ANION GAP 8 (5-15); ASPARTATE AMINOTRANSFERASE 65 U/L (10-37); CALCIUM 9.3 mg/dL (8.4-11.0); CHLORIDE 116 mmol/L (98-107); CREATININE 1.37 mg/dL (0.55-1.30); GLUCOSE 262 mg/dL (70-99); TOTAL BILIRUBIN 1.3 mg/dL (0.0-1.0); UREA NITROGEN, BLOOD 19 mg/dL (8-21)
[2022-04-11 08:00] VITALS: BP_SYST 141
[2022-04-11] MEDS: LACTULOSE 20 GM/30 ML UDC PO SCH ×3 (09:00→21:10)
[2022-04-11] MEDS: D5W 1,000 ML IV SCH ×2 (09:01→17:01)
[2022-04-11] MEDS: RIFAXIMIN 550 MG TABLET PO SCH ×2 (09:01→20:48)
[2022-04-11] MEDS: GABAPENTIN 100 MG CAPSULE PO SCH ×2 (09:01→20:48)
[2022-04-11] MEDS: CYANOCOBALAMIN (VITAMIN B-12) 1,000 MCG TABLET PO SCH (09:02)
[2022-04-11] MEDS: CHOLECALCIFEROL (VITAMIN D3) 2,000 UNIT TABLET PO SCH (09:02)
[2022-04-11] MEDS: MAGNESIUM OXIDE 400 MG TABLET PO SCH (09:07)
[2022-04-11] MEDS: ONDANSETRON HCL 4 MG/2 ML VIAL IVP PRN ×2 (09:30→22:37)
--- NOTE | 2022-04-11 10:39 | NUR ---
PAGED REGARDING CENTRAL LINE PLACEMENT.AWAITING CALL BACK
[2022-04-11 11:27] VITALS: BP_SYST 110
--- NOTE | 2022-04-11 14:30 | NUR ---
CALLED, PREPARE SUPPLIES FOR CENTRAL LINE IS ON THE WAY
--- NOTE | 2022-04-11 15:00 | NUR ---
HAVE TALK TO PT'S DTR(ELIEL) SINCE DTR HAS QUESTIONS REGARDING CENTRAL LINE PLACEMENT
[2022-04-11 15:16] VITALS: BP_SYST 120
[2022-04-11] MEDS ORDERED: HEPARIN SODIUM,PORCINE 5,000 UNITS/ML VIAL IVP ONE (15:30)
--- NOTE | 2022-04-11 15:30 | NUR ---
WAS NOT ABLE TO PLACE CENTRAL LINE TO IJ. SEE DR'S PROGRESS NOTE.
--- NOTE | 2022-04-11 16:00 | NUR ---
CHEST X-RAY WAS DONE.
--- NOTE | 2022-04-11 16:37 | NUR ---
SPOKE WITH DTR(ELIEL) UPDATED STATUS.
--- NOTE | 2022-04-11 18:00 | NUR ---
SPOKE WITH DR. YI REGARDING UNSUCCESSFUL CENTRAL LINE TO IJ. NEW ORDER RECEIVED: DIETARY CONSULT.
--- NOTE | 2022-04-11 19:09 | NUR ---
CLOSING NOTE PT SLEEPING IN BED, NO S/S PAIN OR DISCOMFORT. IVF RUNNING ORDERED. NO IV INFILTRATION OR INFECTION NOTED. BED IS LOCKED AND AT LOWEST POSITION. WILL ENDORSE CARE TO ETIQUETTE COACH NURSE.
[2022-04-11 19:34] VITALS: BP_SYST 127
[2022-04-11] MEDS: ATORVASTATIN 20 MG TABLET PO SCH (20:47)
--- NOTE | 2022-04-11 21:00 | NUR ---
Family at the bedside requesting for PICC line consented, difficult IV access unable to reinsert , per daughter Zee to wait for PICC insertion instead of putting another IV cannula , Dr Mccarthy informed
[2022-04-11] MEDS: MIRTAZAPINE 15 MG TABLET PO SCH (21:10)
--- NOTE | 2022-04-11 22:30 | NUR ---
GI Patient feeling nauseated denies any epigastric pain no chest pain , Zofran given , oral care , had loose stool perineal care given.
[2022-04-11 22:44] LABS: INR 1.6 (0.8-1.2); PROTHROMBIN TIME 16.1 SECS (9.5-12.5)
[2022-04-12 00:07] VITALS: BP_SYST 121
[2022-04-12] MEDS: D5W 1,000 ML IV SCH ×2 (03:15→13:15)
[2022-04-12] MEDS: ONDANSETRON HCL 4 MG/2 ML VIAL IVP PRN ×3 (04:23→20:35)
[2022-04-12] MEDS: LEVOTHYROXINE SODIUM 0.088 MG TABLET PO SCH (06:24)
[2022-04-12] MEDS: INSULIN REGULAR, HUMAN 100 UNITS/ML, 3 ML VIAL (humuLIN R) SUBCUT PRN ×3 (06:24→20:53)
--- NOTE | 2022-04-12 06:30 | NUR ---
GI Vomited once no aspiration , oral care given felt better after vomiting, denies any headache no abdominal pain , will monitor.
--- NOTE | 2022-04-12 06:50 | NUR ---
PICC line insertion follow up with the supervisor of way , PICC line nurse will be coming in the morning .
[2022-04-12 06:52] LABS: BASOPHILS % (AUTO) 0.5 % (0.0-2.0); EOSINOPHILS # (AUTO) 0.2 K/uL (0.0-0.4); EOSINOPHILS % (AUTO) 2.6 % (0.0-4.0); HEMATOCRIT 35.8 % (36-48); HEMOGLOBIN 12.1 g/dL (12.0-16.0); LYMPHOCYTES # (AUTO) 1.1 K/uL (1.0-5.5); LYMPHOCYTES % (AUTO) 19.1 % (20.5-51.5); MEAN CORPUSCULAR HEMOGLOBIN 38 pg (27-31); MEAN CORPUSCULAR HGB CONC 34 % (32-36); MEAN CORPUSCULAR VOLUME 112 fL (79.0-98.0); MONOCYTES # (AUTO) 0.5 K/uL (0.0-1.0); MONOCYTES % (AUTO) 8.8 % (1.7-9.3); NEUTROPHILS # (AUTO) 4.1 K/uL (1.8-7.7); PLATELET COUNT (AUTO) 64 K/uL (130-430); RED BLOOD CELL COUNT(AUTO) 3.18 MIL/uL (4.2-6.2); RED CELL DISTRIBUTION WIDTH 17.6 % (9.0-15.0); WHITE BLOOD COUNT (AUTO) 5.9 K/uL (4.8-10.8)
[2022-04-12 07:30] VITALS: BP_SYST 163
--- NOTE | 2022-04-12 07:30 | NUR ---
OPENING NOTE Received patient report from NELLA Mathias. Patient resting in bed. A/O x3, Malay speaking. Breathing is even and unlabored on Room Air. No pain, No SOB, No distress noted at this time. Patient on bedrest and uses bedpan. Patient to have PICC line placed later today for TPN and Blood draw. All needs met at this time, bed is locked in lowest position, call light within reach. Will continue to monitor.
[2022-04-12 07:37] LABS: ALANINE AMINOTRANSFERASE 104 U/L (12-78); ALBUMIN 2.4 g/dL (3.4-4.8); ANION GAP 11 (5-15); ASPARTATE AMINOTRANSFERASE 136 U/L (10-37); CALCIUM 9.6 mg/dL (8.4-11.0); CHLORIDE 109 mmol/L (98-107); CREATININE 1.44 mg/dL (0.55-1.30); GLUCOSE 211 mg/dL (70-99); TOTAL BILIRUBIN 1.7 mg/dL (0.0-1.0); UREA NITROGEN, BLOOD 23 mg/dL (8-21)
[2022-04-12] MEDS: GABAPENTIN 100 MG CAPSULE PO SCH ×2 (08:09→20:40)
[2022-04-12] MEDS: CHOLECALCIFEROL (VITAMIN D3) 2,000 UNIT TABLET PO SCH (08:09)
[2022-04-12] MEDS: CYANOCOBALAMIN (VITAMIN B-12) 1,000 MCG TABLET PO SCH (08:09)
[2022-04-12] MEDS: RIFAXIMIN 550 MG TABLET PO SCH ×2 (08:09→20:40)
[2022-04-12] MEDS: MAGNESIUM OXIDE 400 MG TABLET PO SCH (08:11)
[2022-04-12] MEDS: LACTULOSE 20 GM/30 ML UDC PO SCH ×3 (08:12→20:40)
--- NOTE | 2022-04-12 12:00 | NUR ---
PATIENT ROUNDS Patient resting in bed. Breathing is even and unlabored on Room Air. No pain, No SOB, No distress noted at this time. All needs met at this time, bed is locked in lowest position, call light within reach. Will continue to monitor.
--- NOTE | 2022-04-12 12:36 | NUR ---
PICC RN inserting PICC at this moment.
[2022-04-12] MEDS ORDERED: INSULIN REGULAR, HUMAN 100 UNITS/ML, 3 ML VIAL (humuLIN R) SUBCUT PRN (13:00)
[2022-04-12] MEDS ORDERED: DEXTROSE 50% JECT 50 ML DISP.SYRIN IVP PRN (13:00)
[2022-04-12] MEDS ORDERED: *TPN PER PHARMACY XX PRN (13:00)
[2022-04-12 13:29] VITALS: BP_SYST 152
--- NOTE | 2022-04-12 14:07 | NUR ---
Dietitian Recommendations * Initiate TPN if medically appropriate: -- D30 AA 10% @ 60mL/hr (goal rate) + 20%ILE @ 10mL/hr via Central line Provides: 1680mL total volume, 1502 kcals, 72g AA; GIR 2.6 Meets: 102% lower est kcals, 81% lower est PRO, 99% upper est fluids * Encourage PO intake, as well as TPN * Consider banatrol BID GS, MPH, RD Please refer to RD Assessment for further details Addendum: 04/12/22 at [address] Amended: Links added.
[2022-04-12 18:11] VITALS: BP_SYST 152
--- NOTE | 2022-04-12 18:45 | NUR ---
CLOSING NOTE Patient resting in bed. A/O x3, Yakut speaking. Breathing is even and unlabored on Room Air. No pain, No SOB, No distress noted at this time. Patient on bedrest and uses bedpan. Patient has PICC line to right upper arm for TPN and Blood draw, TPN to start on 04/13/2022. All needs met at this time, bed is locked in lowest position, call light within reach. Will endorse to nightshift nurse.
[2022-04-12 20:00] VITALS: BP_SYST 154
[2022-04-12] MEDS: MIRTAZAPINE 15 MG TABLET PO SCH (20:40)
[2022-04-12] MEDS: ATORVASTATIN 20 MG TABLET PO SCH (20:41)
[2022-04-13 00:16] VITALS: BP_SYST 128
[2022-04-13] MEDS: LEVOTHYROXINE SODIUM 0.088 MG TABLET PO SCH (05:55)
[2022-04-13] MEDS: INSULIN REGULAR, HUMAN 100 UNITS/ML, 3 ML VIAL (humuLIN R) SUBCUT PRN ×3 (05:56→17:41)
[2022-04-13] MEDS: D5W 1,000 ML IV SCH ×2 (05:59→22:43)
--- NOTE | 2022-04-13 07:49 | NUR ---
PHYSICAL THERAPY CO-SIGN The Physical Therapy Progress Notes documented by Master Of Ceremonies have been reviewed. Reviewed/Co-Signed by: Juan F Carmona Documentation Done by: RICHARD LARA PTA Addendum: 04/13/22 at 0749 by Juan F Carmona PT Amended: Links added.
[2022-04-13 08:00] VITALS: BP_SYST 157
--- NOTE | 2022-04-13 08:00 | NUR ---
Initial notes Received patient AAOx3, respiration even and unlabored no signs of distress noted. Right Picc x2 lumen patent. All safety precaution secured continue to monitor.
[2022-04-13 08:03] LABS: ALANINE AMINOTRANSFERASE 65 U/L (12-78); ALBUMIN 2.1 g/dL (3.4-4.8); ANION GAP 9 (5-15); ASPARTATE AMINOTRANSFERASE 62 U/L (10-37); CALCIUM 8.6 mg/dL (8.4-11.0); CHLORIDE 106 mmol/L (98-107); CREATININE 1.54 mg/dL (0.55-1.30); GLUCOSE 246 mg/dL (70-99); PHOSPHORUS 2.6 mg/dL (2.7-4.5); TOTAL BILIRUBIN 1.4 mg/dL (0.0-1.0); TRIGLYCERIDES 78 mg/dL (30-150); UREA NITROGEN, BLOOD 31 mg/dL (8-21)
[2022-04-13] MEDS: CYANOCOBALAMIN (VITAMIN B-12) 1,000 MCG TABLET PO SCH (08:46)
[2022-04-13] MEDS: LACTULOSE 20 GM/30 ML UDC PO SCH ×3 (08:46→20:03)
[2022-04-13] MEDS: MAGNESIUM OXIDE 400 MG TABLET PO SCH (08:46)
[2022-04-13] MEDS: GABAPENTIN 100 MG CAPSULE PO SCH ×2 (08:47→20:04)
[2022-04-13] MEDS: RIFAXIMIN 550 MG TABLET PO SCH ×2 (08:47→20:04)
[2022-04-13] MEDS: CHOLECALCIFEROL (VITAMIN D3) 2,000 UNIT TABLET PO SCH (08:47)
[2022-04-13 11:30] VITALS: BP_SYST 158
--- NOTE | 2022-04-13 11:30 | NUR ---
NETWORK DESIGN ARCHITECT ACSW Shaina contacted [facility] to obtain an update on family moving forward with hospice services. Anat from [facility] was unable to provide update and stated [facility] nurse would be returning call with more information.
--- NOTE | 2022-04-13 12:55 | NUR ---
PHYSICAL THERAPY CO-SIGN The Physical Therapy Progress Notes documented by Electrical Contacts Adjuster have been reviewed. Reviewed/Co-Signed by: Juan F Carmona Documentation Done by: ANUSHKA WINKLER PTA Addendum: 04/13/22 at 1255 by Juan F Carmona PT Amended: Links added.
[2022-04-13] MEDS: ONDANSETRON HCL 4 MG/2 ML VIAL IVP PRN ×3 (14:44→23:31)
--- NOTE | 2022-04-13 14:50 | NUR ---
Patient c/o nausea, medication given
[2022-04-13] MEDS ORDERED: K PHOS 30 MM in NS 250 ML IV ONE (15:15)
[2022-04-13 15:41] VITALS: BP_SYST 146
--- NOTE | 2022-04-13 19:58 | NUR ---
Closing Patient AAOx3, respiration even and unlabored no signs of distress noted. Right Picc x2 lumen patent. All safety precaution secured will endorse.
[2022-04-13 20:00] VITALS: BP_SYST 152
[2022-04-13] MEDS: ATORVASTATIN 20 MG TABLET PO SCH (20:03)
[2022-04-13] MEDS: MIRTAZAPINE 15 MG TABLET PO SCH (20:04)
[2022-04-13] MEDS ORDERED: K PHOS IV SCH ×9 (21:00)
[2022-04-13] MEDS ORDERED: [UNRECOGNIZED DRUG - OTHER] IV SCH ×9 (21:00)
[2022-04-13] MEDS ORDERED: POTASSIUM ACETATE IV SCH ×9 (21:00)
[2022-04-13] MEDS ORDERED: SODIUM ACETATE IV SCH ×9 (21:00)
[2022-04-13] MEDS ORDERED: TPN CENTRAL IV SCH ×9 (21:00)
--- NOTE | 2022-04-13 22:46 | NUR ---
Patient in bed. No acute distress noted. N/V noted prn given. Will continue to monitor.
[2022-04-13] MEDS: LORazepam 2 MG/ML VIAL IVP PRN (23:30)
[2022-04-14 00:47] VITALS: BP_SYST 161
--- NOTE | 2022-04-14 01:33 | NUR ---
Patient's family continues to come out of patient's room requesting ativan for the patient. Ativan administered already. Family member stated patient is trying to get out of the bed. This nurse went in to assess the situation. Patient lying in bed quietly. Will continue to monitor.
[2022-04-14] MEDS: LORazepam 2 MG/ML VIAL IVP PRN (02:55)
[2022-04-14] MEDS: LEVOTHYROXINE SODIUM 0.088 MG TABLET PO SCH (04:24)
[2022-04-14] MEDS: INSULIN REGULAR, HUMAN 100 UNITS/ML, 3 ML VIAL (humuLIN R) SUBCUT PRN ×4 (05:32→20:47)
--- NOTE | 2022-04-14 06:36 | NUR ---
Patient has coffee colored emesis. Will endorse to a.m. shift nurse.
[2022-04-14 07:04] LABS: BASOPHILS % (AUTO) 0.1 % (0.0-2.0); EOSINOPHILS % (AUTO) 0.1 % (0.0-4.0); HEMATOCRIT 31.6 % (36-48); HEMOGLOBIN 10.7 g/dL (12.0-16.0); LYMPHOCYTES % (AUTO) 8.2 % (20.5-51.5); MEAN CORPUSCULAR HEMOGLOBIN 38 pg (27-31); MEAN CORPUSCULAR HGB CONC 34 % (32-36); MEAN CORPUSCULAR VOLUME 111 fL (79.0-98.0); MONOCYTES # (AUTO) 1.2 K/uL (0.0-1.0); MONOCYTES % (AUTO) 10.1 % (1.7-9.3); NEUTROPHILS # (AUTO) 9.7 K/uL (1.8-7.7); NEUTROPHILS % (AUTO) 81.5 % (40.0-70.0); PLATELET COUNT (AUTO) 75 K/uL (130-430); RED BLOOD CELL COUNT(AUTO) 2.85 MIL/uL (4.2-6.2); RED CELL DISTRIBUTION WIDTH 16.8 % (9.0-15.0); WHITE BLOOD COUNT (AUTO) 11.9 K/uL (4.8-10.8)
[2022-04-14 08:00] VITALS: BP_SYST 152
[2022-04-14 08:01] LABS: ALANINE AMINOTRANSFERASE 54 U/L (12-78); ALBUMIN 2.2 g/dL (3.4-4.8); ANION GAP 9 (5-15); ASPARTATE AMINOTRANSFERASE 54 U/L (10-37); CALCIUM 8.9 mg/dL (8.4-11.0); CHLORIDE 107 mmol/L (98-107); GLUCOSE 375 mg/dL (70-99); PHOSPHORUS 3.8 mg/dL (2.7-4.5); UREA NITROGEN, BLOOD 39 mg/dL (8-21)
[2022-04-14] MEDS: GABAPENTIN 100 MG CAPSULE PO SCH ×2 (09:00→21:00)
[2022-04-14] MEDS: CHOLECALCIFEROL (VITAMIN D3) 2,000 UNIT TABLET PO SCH (09:00)
[2022-04-14] MEDS: CYANOCOBALAMIN (VITAMIN B-12) 1,000 MCG TABLET PO SCH (09:00)
[2022-04-14] MEDS: MAGNESIUM OXIDE 400 MG TABLET PO SCH (09:00)
--- NOTE | 2022-04-14 09:00 | NUR ---
PATIENT PRESENTS LETHARGIC, MINIMALLY RESPONSIVE TO, VERBAL STIMULI, PM NURSE REPORTS PATIENT HAD COFFEE GROUND EMESIS AND STOOL DURING LOG CHAIN FEEDER, WBC ELEVATED 11.9, TELEPHONE CALL TO MAKE DR. MARTEL AWARE OF CHANGES, NEW ORDERS OBTAINED FOR BLOOD CX, ID CONSULT AND REPEAT AMMONIA LEVEL
--- NOTE | 2022-04-14 09:00 | NUR ---
MULTIPLE ATTEMPTS AND MAX ENCOURAGEMENT GIVEN FOR PT TREATMENT. RN IN THE ROOM AND ASSISTED WITH TRANSLATION PATIENT SPEAKS JAMAICAN. PATIENT WAS TOO TIRED AND DECLINED EOB ACTIVITIES. ATTEMPTED TO PERFORM PROM ON PATIENT HOWEVER PATIENT REFUSED WHILE SHAKING HER HEAD.
--- NOTE | 2022-04-14 09:16 | NUR ---
CONSULT ID ELEVATED WBC DR. MURRAY [facility] [phone] S/W JASPREET EXCHANGE
[2022-04-14] MEDS: LACTULOSE 20 GM/30 ML UDC PO SCH ×3 (09:36→21:00)
[2022-04-14] MEDS: RIFAXIMIN 550 MG TABLET PO SCH ×2 (09:41→21:00)
--- NOTE | 2022-04-14 09:56 | NUR ---
Nutrition F/U Admitting Diagnosis Hepatic Encephalopathy Reviewed Pertinent Medical/Surgical Hx Medical Record RN Medical History Comment: per EMR: 81yo female who presents to the ER brought in by EMS for altered mental status. Patient was found with elevated ammonia. Patient remains confused unable to give any appropriate history. On initial evaluation, her temperature was 97.8 F and WBC count was 5900. Creatinine was 2.04. Ammonia level was 66. Lactic acid was 1.0. She was diagnosed to have hepatic encephalopathy with acute renal failure. ID hr consultant was called for evaluation and management. Chest x-ray showed:Mild cardiomegaly and pulmonary edema suggesting congestive heart PMHx:Liver cirrhosis, DM, Hyperlipidemia,Depression,Diabetic neuropathy, Hypothyroidism, Anemia of CKD, Hepatic encephalopathy. Subjective Information RD rounded to pt room and pt was resting. RD noted TPN running at 42mL/hr. However, no ILE Was running. RD found Mary CARMEN to discuss pt condition. She noted that pt seemed very out of it today. She alerted Dr and they are going to run some tests to see what is going on. RD asked about the ILE and RN was not sure why it was not ordered; she said she would check on it. RN said pt had nausea and black emesis yesterday. RD suggested Banatrol if pt was still having diarrhea today. RN stated that pts BG was out of control so they stopped the D5W (last reading BG 356.) RD finds pt to be at risk for non-severe moderate malnutrition, possibly severe. Pt is currently not meeting nutritional needs. Current Diet Order/Nutrition Support *Mechanial soft x 4 days *D30, AA10% @ 42 mL/hr Provides: 716 kcal, 50 g PRO, total volume 1008 mL; GIR 1.8 Meets: 49% of lower est kcal, 56% of lower est SD, 72% of lower est water needs Patient/Significant Other Unable To Verbalize Education Provided Not Indicated NEW Pertinent Medications zofran, synthroid, SSI, Lipitor NEW Pertinent Labs BUN 39 H, Cre 1.70 H, BG 375 H, AST 54 H (improving), ALT 54 WNL Height (Feet) 5 feet Height (Inches) 2.00 inches Weight stable since 04/04 129 # /58.513 kg Body Mass Index 23.59 kg/m2 %IBW 118 [place]/Adjusted Body Weight 110#/ 50 kg Recent Weight Change Yes - Daughter unsure of exact amount Weight Status Appropriate Gastrointestinal Symptoms Nausea Vomiting Diarrhea Last BM Apr 13, 2022 x 2 Usual Diet At Home Regular per RN screen Skin Integrity Comment: Can: 17 Wounds: redness on left hand and redness on perineal area Edema: BUE and generalized 1+ non-pitting Current % PO Negligible <25% Estimated Energy Expenditure (kcals/day) 3144-1345 kcal (25-30kcal/kg CBW d/t wounds, GERIAT) Estimated Protein Required (g/day) 89-118g (1.5-2g/kg CBW d/t wounds) Estimated Fluid Required (l/day) 1.4-1.7L (1mL/kcal Problem/Etiology/Signs/Symptoms * Suboptimal nutrient intakes R/T decreased appetite d/t nausea, tastebuds changing AEB documented decreased PO intake and daughter report (ongoing) Expected Outcomes/Goals TPN tolerated at goal rate, TPN provides >95% estimated nutritional needs, improvements in skin integrity, nutrition-related labs trending WNL, weight maintenance, BM q 1-3 days Dietitian Recommendations * Advance TPN and initiate ILE, if medically appropriate: -- D30 AA 10% @ 60mL/hr (goal rate) + 20% ILE @ 10mL/hr via Central line Provides: 1680mL total volume, 1502 kcals, 72g AA; GIR 2.6 Meets: 102% lower est kcals, 81% lower est PRO, 99% upper est fluids * Encourage PO intake, as well as TPN support * Consider banatrol BID, for diarrhea Follow Up High Risk: F/U in 2-3days
--- NOTE | 2022-04-14 09:58 | NUR ---
Dietitian Recommendations * Advance TPN and initiate ILE, if medically appropriate: -- D30 AA 10% @ 60mL/hr (goal rate) + 20% ILE @ 10mL/hr via Central line Provides: 1680mL total volume, 1502 kcals, 72g AA; GIR 2.6 Meets: 102% lower est kcals, 81% lower est PRO, 99% upper est fluids * Encourage PO intake, as well as TPN support * Consider banatrol BID, for diarrhea GS, MPH, RD Please refer to Nutrition F/U for further details. Thanks!
--- NOTE | 2022-04-14 12:18 | NUR ---
Speech Pathologist Assistant GERIATRIC ASSISTANT met with pts. dtr bedside who stated her mom is not doing well. pt. has been vomiting, unable to eat and keep anything down, pneumonia levels are high pt. is very lethargic. Dtr. is still unsure about hospice as she stated she has not spoken to a Dr. since before [facility]. GERIATRIC ASSISTANT asked Rn Mary [id number], to speak to dtr. Mary stated she was a home hospice rn for a very long time and will go in to speak to the Dtr. Mary was headed over [facility] n GERIATRIC ASSISTANT left Rn. station.
[2022-04-14 12:51] VITALS: BP_SYST 154
--- NOTE | 2022-04-14 13:00 | NUR ---
BLOOD SUGAR 468, 12 UNITS R INSULIN ADMINISTERED PER SLIDING SCALE, TELEPHONE CALL TO MD TO NOTIFY
[2022-04-14 16:33] VITALS: BP_SYST 153
[2022-04-14] MEDS: NACL 0.9% 1,000 ML IV SCH (17:45)
[2022-04-14] MEDS ORDERED: METOCLOPRAMIDE HCL 10 MG/2 ML VIAL IVP PRN (17:45)
--- NOTE | 2022-04-14 19:57 | NUR ---
RECEIVED PT LYING IN BED, PT LETHARGIC HOWEVER AROUSABLE ORIENTED TO NAME. ABLE TO FOLLOW SIMPLE COMMANDS. DOUBLE LUMEN PICC TO RUE. LUNG SOUNDS CLEAR. REDNESS NOTED TO INNER THIGHS. PALPABLE PULSE TO ALL EXTREMITIES. FAMILY MEMBERS AT BEDSIDE. Addendum: 04/14/22 at 2106 by [facility], NELLA CARMEN PT UNABLE TO SAFELY SWALLOW. ATTEMPTED TO GIVE A SIP OF WATER AND PT STARTED COUGHING. THEREFORE ORAL MEDICATIONS WERE HELD. DUE TO LETHARGY
[2022-04-14 20:00] VITALS: BP_SYST 154
[2022-04-14] MEDS: FAT EMULSIONS 250 ML IV SCH (20:52)
[2022-04-14] MEDS ORDERED: K PHOS IV SCH ×10 (21:00)
[2022-04-14] MEDS ORDERED: [UNRECOGNIZED DRUG - OTHER] IV SCH ×10 (21:00)
[2022-04-14] MEDS ORDERED: TPN CENTRAL IV SCH ×10 (21:00)
[2022-04-14] MEDS ORDERED: SODIUM ACETATE IV SCH ×10 (21:00)
[2022-04-14] MEDS: MIRTAZAPINE 15 MG TABLET PO SCH (21:00)
[2022-04-14] MEDS: ATORVASTATIN 20 MG TABLET PO SCH (21:00)
[2022-04-14] MEDS ORDERED: POTASSIUM ACETATE IV SCH ×10 (21:00)
[2022-04-15 01:12] VITALS: BP_SYST 120
[2022-04-15] MEDS: LEVOTHYROXINE SODIUM 0.088 MG TABLET PO SCH (06:37)
[2022-04-15] MEDS: INSULIN REGULAR, HUMAN 100 UNITS/ML, 3 ML VIAL (humuLIN R) SUBCUT PRN ×4 (06:39→21:27)
[2022-04-15 06:45] LABS: BASOPHILS % (AUTO) 0.1 % (0.0-2.0); EOSINOPHILS # (AUTO) 0.1 K/uL (0.0-0.4); EOSINOPHILS % (AUTO) 1.1 % (0.0-4.0); HEMATOCRIT 28.1 % (36-48); HEMOGLOBIN 9.5 g/dL (12.0-16.0); LYMPHOCYTES # (AUTO) 1.2 K/uL (1.0-5.5); LYMPHOCYTES % (AUTO) 10.9 % (20.5-51.5); MEAN CORPUSCULAR HEMOGLOBIN 38 pg (27-31); MEAN CORPUSCULAR HGB CONC 34 % (32-36); MEAN CORPUSCULAR VOLUME 111 fL (79.0-98.0); MONOCYTES # (AUTO) 1.3 K/uL (0.0-1.0); MONOCYTES % (AUTO) 11.3 % (1.7-9.3); NEUTROPHILS # (AUTO) 8.8 K/uL (1.8-7.7); NEUTROPHILS % (AUTO) 76.6 % (40.0-70.0); PLATELET COUNT (AUTO) 58 K/uL (130-430); RED BLOOD CELL COUNT(AUTO) 2.53 MIL/uL (4.2-6.2); RED CELL DISTRIBUTION WIDTH 16.9 % (9.0-15.0); WHITE BLOOD COUNT (AUTO) 11.5 K/uL (4.8-10.8)
[2022-04-15 06:59] LABS: ALANINE AMINOTRANSFERASE 36 U/L (12-78); ALBUMIN 1.7 g/dL (3.4-4.8); ANION GAP 7 (5-15); ASPARTATE AMINOTRANSFERASE 37 U/L (10-37); CALCIUM 7.7 mg/dL (8.4-11.0); CHLORIDE 107 mmol/L (98-107); CREATININE 1.32 mg/dL (0.55-1.30); GLUCOSE 339 mg/dL (70-99); PHOSPHORUS 1.6 mg/dL (2.7-4.5); TOTAL BILIRUBIN 1.1 mg/dL (0.0-1.0); UREA NITROGEN, BLOOD 46 mg/dL (8-21)
[2022-04-15] MEDS: RIFAXIMIN 550 MG TABLET PO SCH ×2 (08:08→21:03)
[2022-04-15] MEDS: CHOLECALCIFEROL (VITAMIN D3) 2,000 UNIT TABLET PO SCH (08:08)
[2022-04-15] MEDS: LACTULOSE 20 GM/30 ML UDC PO SCH (08:08)
[2022-04-15] MEDS: CYANOCOBALAMIN (VITAMIN B-12) 1,000 MCG TABLET PO SCH (08:08)
[2022-04-15] MEDS: MAGNESIUM OXIDE 400 MG TABLET PO SCH (08:09)
[2022-04-15] MEDS: GABAPENTIN 100 MG CAPSULE PO SCH ×2 (08:09→21:04)
--- NOTE | 2022-04-15 08:09 | NUR ---
Scheduled medications given per order. Patient stable at this time.
[2022-04-15 08:10] VITALS: BP_SYST 149
--- NOTE | 2022-04-15 09:50 | NUR ---
Patient asleep at this time; stable.
[2022-04-15 11:26] VITALS: BP_SYST 135
--- NOTE | 2022-04-15 11:38 | NUR ---
Patient asleep with Kaur, [employer] BI ARCHITECT and daughter at bedside. Patient stable at this time.
[2022-04-15] MEDS ORDERED: METOCLOPRAMIDE HCL 10 MG/2 ML VIAL IVP PRN (11:45)
[2022-04-15] MEDS ORDERED: METOCLOPRAMIDE HCL 10 MG/2 ML VIAL ONE (12:23)
--- NOTE | 2022-04-15 12:55 | NUR ---
Checked blood sugar: 380 mg/dl - will cover per sliding scale. Patient stable with daughterZee at bedside. Addendum: 04/15/22 at 1534 by Peg Marcano RN Covered per sliding scale: 10 units.
[2022-04-15] MEDS: NACL 0.9% 1,000 ML IV SCH (13:45)
[2022-04-15] MEDS ORDERED: K PHOS 30 MM in NS 250 ML IV ONE (15:00)
[2022-04-15] MEDS: cefTRIAXone 1 GM in D5W 50 ML IV SCH (15:31)
--- NOTE | 2022-04-15 15:33 | NUR ---
Scheduled IV abx given per order. Patient stable with daughter at bedside.
[2022-04-15 15:50] VITALS: BP_SYST 126
--- NOTE | 2022-04-15 16:52 | NUR ---
Scheduled IV medication given per order. Patient stable with daughter and son-in-law at bedside.
--- NOTE | 2022-04-15 17:05 | NUR ---
Checked blood sugar: 443 mg/dl - will cover per sliding scale and notify doctor. Patient stable.
--- NOTE | 2022-04-15 17:14 | NUR ---
Patient medicated for nausea. Covered per sliding scale: 12 units and will notify doctor. Patient stable.
--- NOTE | 2022-04-15 18:28 | NUR ---
Nutrition F/U: Admitting Diagnosis Hepatic Encephalopathy Reviewed Pertinent Medical/Surgical Hx Medical Record; Pts daughter Medical History Comment: Per EMR: 81yo female who presents to the ER brought in by EMS for altered mental status. Patient was found with elevated ammonia. Patient remains confused unable to give any appropriate history. On initial evaluation, her temperature was 97.8 F and WBC count was 5900. Creatinine was 2.04. Ammonia level was 66. Lactic acid was 1.0. She was diagnosed to have hepatic encephalopathy with acute renal failure. ID wound care center consultant was called for evaluation and management. Chest x-ray showed: Mild cardiomegaly and pulmonary edema suggesting congestive heart PMHx: Liver cirrhosis, DM, Hyperlipidemia, Depression, Diabetic neuropathy, Hypothyroidism, Anemia of CKD, Hepatic encephalopathy. Subjective Information: RD rounded to patient room and witnessed patient in bed sleeping with TPN infusing: D30 AA10% @ 50mL + 20% ILE at 10mL. TPN infusing at 50mL provides: 1440 mL, 1332 kcals, 60g AA; GIR 2.1. Patient daughter at bedside and agreed to participate in nutrition Hx. Per daughter, patient PO intake decreased a few month prior after pt lumbar fx d/t patient not wanting to use the restroom often because of pain. Daughter endorses patient usual intake recently includes 2 meals/day: fruit or oatmeal for breakfast and a light dinner, with a diabetic ONS once per day. Per nutr Hx and documented PO intake since admit, patient with poor PO for suspected >[address] discussed with pt daughter to encourage pt to drink 2-3 ONS per day if pt continues to have poor PO. Pt daughter verbalized understanding. PO intake documented since 04/13: 17.5% x 2 meals. Dtr endorses pt was willing to try pureed diet for improved PO intake, however pt did not like pureed, so patient was advanced back to mechanical soft. Dtr reports pt with diarrhea d/t lactulose. Due to suspected poor PO >1 month, inadequate PO intake during admit, patient possibly at risk for refeeding syndrome. RD noted worsening renal labs (cre/BUN), new RD recommendations reflect this change. RD s/w pt RN over phone and verbalized c/o renal labs and increased PRO in TPN as well as refeeding risk. RD informed RN of new RN recommendations. 12/28: RD finds pt to be at risk for non-severe moderate malnutrition, possibly severe. Pt is currently not meeting nutritional needs. Current Diet Order/Nutrition Support Diet Mechanical Soft x 5 days PN D30 AA10% @ 50mL x 0 days; 20% ILE at 5mL x 1 day *NEW Pertinent Medications: Synthroid, SSI, Lipitor, B12, D3, MagOx; Lactulose was d/c on 04/15 *NEW Pertinent Labs: Drawn 04/14-04/15 - BUN 46 H, Cre 1.32 H, BG 399 H, ammonia 9L, Hgb 9.5 L, WBC 11.5 H, Ca 7.7 L, Phos 1.6 L, Bili 1.1 H; Improved: AST 37 NL, ALT 36 NL; Hgba1c 04/05 - 5.9 NL for DM Height (Feet) 5 feet Height (Inches) 2.00 inches Weight stable since 04/04 129 # /58.513 kg Body Mass Index 23.59 kg/m2 %IBW 118 [place]/Adjusted Body Weight 110#/ 50 kg Recent Weight Change Yes - Daughter unsure of exact amount Weight Status Appropriate Gastrointestinal Symptoms Nausea; Vomiting; Diarrhea Last BM Apr 15, 2022 x 1 Usual Diet At Home Regular diet + 1 x diabetic ONS per daughter Skin Integrity Comment: Can Score 14: skin tear on left hand and redness on perineal area Edema: +1 BUE and generalized non-pitting Current % PO Negligible 17.5% *NEW Estimated Energy Expenditure (kcals/day) 1770- 2048 kcal (30-35 kcal/kg CBW d/t cirrhosis, PEM) *NEW Estimated Protein Required (g/day) 58-87g (1-1.5 g/kg CBW d/t liver dz, worsening renal labs) Estimated Fluid Required (l/day) Per MD d/t renal labs Problem/Etiology/Signs/Symptoms * Suboptimal nutrient intakes R/T decreased appetite d/t nausea, tastebuds changing AEB documented decreased PO intake and daughter report (ongoing) * Altered nutrition-related lab values r/t renal dysfunction a/e/b worsening elevated BUN, Cre (New) * Severe protein energy malnutrition r/t decreased PO intake a/e/b pt dtr reports decreased PO intake x 1 month s/p lumbar fx; negligible PO intake since admit; moderate muscle wasting; moderate fat loss; mild edema (New) Expected Outcomes/Goals TPN tolerated at goal rate, TPN provides >95% estimated nutritional needs, improvements in skin integrity, nutrition-related labs trending WNL, weight maintenance, BM q 1-3 days Dietitian Recommendations * Ordered: GI Soft (low fiber), mechanical soft diet + Glucerna BID * Consider adjust PN: D30 AA 8.5% at 35mL/hr (goal) + 20% ILE st 5mL via central line Provides daily: 960mL, 811 kcals, 36g PRO; GIR 1.5 Meets 46% lower estimated kcals, 60% lower estimated PRO * Refeeding risk: Monitor thiamine and electrolytes x 5 days * Consider pain management per MD discretion -- patient not eating well x 1 month related to pain Follow Up High Risk: F/U in 2-3days
--- NOTE | 2022-04-15 18:32 | NUR ---
Dietitian Recommendations * Ordered: GI Soft (low fiber), mechanical soft diet + Glucerna BID * Consider adjust PN: D30 AA8.5% at 35mL/hr (goal) + 20% ILE at 5mL via central line Provides daily: 960mL, 811 kcals, 36g PRO; GIR 1.5 Meets 46% lower estimated kcals, 60% lower estimated PRO * Refeeding risk: Monitor thiamine and electrolytes x 5 days * Consider pain management per MD discretion -- patient not eating well x 1 month related to pain Please refer to nutrition assessment for details, thanks! Analilia Marshall MPH, RDN
--- NOTE | 2022-04-15 18:54 | NUR ---
Patient asleep with daughter at bedside. Patient stable throughout shift.
--- NOTE | 2022-04-15 19:00 | NUR ---
Paged Dr. Pfeiffer regarding elevated blood glucose: 443 mg/dl. Received call back. Informed doctor that scheduled 12 units given per sliding scale. Per doctor, have pharmacy adjust dextrose in TPN. Advised will endorse to night nurse. Addendum: 04/15/22 at 1909 by Peg Marcano RN Called pharmacy, spoke to Zhou and relayed Dr. Pfeiffer's message.
--- NOTE | 2022-04-15 19:52 | NUR ---
PAGED PAGED THE GI DOCTOR KVNG IS EMBOSSING MACHINE OPERATOR
--- NOTE | 2022-04-15 19:56 | NUR ---
RECEIVED PT MORE ALERT TODAY, HOWEVER CONTINUES TO BE LETHARGIC. TPN AND LIPIDS INFUSING TO RUE SITE CDI.
[2022-04-15 20:00] VITALS: BP_SYST 112
[2022-04-15] MEDS ORDERED: [UNRECOGNIZED DRUG - OTHER] IV SCH ×10 (21:00)
[2022-04-15] MEDS ORDERED: TPN CENTRAL IV SCH ×10 (21:00)
[2022-04-15] MEDS ORDERED: SODIUM ACETATE IV SCH ×10 (21:00)
[2022-04-15] MEDS ORDERED: K PHOS IV SCH ×10 (21:00)
[2022-04-15] MEDS ORDERED: POTASSIUM ACETATE IV SCH ×10 (21:00)
[2022-04-15] MEDS: ATORVASTATIN 20 MG TABLET PO SCH (21:03)
[2022-04-15] MEDS: MIRTAZAPINE 15 MG TABLET PO SCH (21:03)
[2022-04-15] MEDS: INSULIN GLARGINE 100 UNITS/ML, 10 ML VIAL SUBCUT SCH (21:28)
[2022-04-15] MEDS: FAT EMULSIONS 250 ML IV SCH (21:41)
[2022-04-16 01:20] VITALS: BP_SYST 129
[2022-04-16] MEDS: INSULIN REGULAR, HUMAN 100 UNITS/ML, 3 ML VIAL (humuLIN R) SUBCUT PRN ×4 (06:30→22:43)
[2022-04-16] MEDS: LEVOTHYROXINE SODIUM 0.088 MG TABLET PO SCH (06:31)
--- NOTE | 2022-04-16 07:10 | NUR ---
Opening note Recievied SBAR from night RN. Patient in bed, respirations even ,non labored, bed in low and locked position call light [facility] emergency reach, bed alarm on
--- NOTE | 2022-04-16 07:11 | NUR ---
PHYSICAL THERAPY CO-SIGN The Physical Therapy Progress Notes documented by Schedule Manager have been reviewed. Reviewed/Co-Signed by: Juan F Carmona Documentation Done by: ANUSHKA WINKLER PTA Addendum: 04/16/22 at 0712 by Juan F Carmona PT Amended: Links added.
[2022-04-16 08:00] VITALS: BP_SYST 117
[2022-04-16 08:09] LABS: BASOPHILS % (AUTO) 0.1 % (0.0-2.0); EOSINOPHILS # (AUTO) 0.2 K/uL (0.0-0.4); EOSINOPHILS % (AUTO) 1.5 % (0.0-4.0); HEMATOCRIT 29.6 % (36-48); HEMOGLOBIN 9.9 g/dL (12.0-16.0); LYMPHOCYTES # (AUTO) 1.3 K/uL (1.0-5.5); LYMPHOCYTES % (AUTO) 11.3 % (20.5-51.5); MEAN CORPUSCULAR HEMOGLOBIN 38 pg (27-31); MEAN CORPUSCULAR HGB CONC 33 % (32-36); MEAN CORPUSCULAR VOLUME 113 fL (79.0-98.0); MONOCYTES # (AUTO) 1.5 K/uL (0.0-1.0); MONOCYTES % (AUTO) 12.9 % (1.7-9.3); NEUTROPHILS # (AUTO) 8.5 K/uL (1.8-7.7); NEUTROPHILS % (AUTO) 74.2 % (40.0-70.0); PLATELET COUNT (AUTO) 52 K/uL (130-430); RED BLOOD CELL COUNT(AUTO) 2.61 MIL/uL (4.2-6.2); RED CELL DISTRIBUTION WIDTH 17.4 % (9.0-15.0); WHITE BLOOD COUNT (AUTO) 11.4 K/uL (4.8-10.8)
[2022-04-16 09:00] LABS: ALANINE AMINOTRANSFERASE 66 U/L (12-78); ALBUMIN 1.7 g/dL (3.4-4.8); ANION GAP 9 (5-15); ASPARTATE AMINOTRANSFERASE 78 U/L (10-37); CALCIUM 7.9 mg/dL (8.4-11.0); CHLORIDE 107 mmol/L (98-107); CREATININE 1.48 mg/dL (0.55-1.30); GLUCOSE 364 mg/dL (70-99); PHOSPHORUS 3.3 mg/dL (2.7-4.5); UREA NITROGEN, BLOOD 53 mg/dL (8-21)
[2022-04-16] MEDS ORDERED: PHYTONADIONE 10 MG/ML AMP SUBCUT ONE (09:00)
[2022-04-16] MEDS: GABAPENTIN 100 MG CAPSULE PO SCH ×2 (09:36→21:34)
[2022-04-16] MEDS: CYANOCOBALAMIN (VITAMIN B-12) 1,000 MCG TABLET PO SCH (09:36)
[2022-04-16] MEDS: CHOLECALCIFEROL (VITAMIN D3) 2,000 UNIT TABLET PO SCH (09:36)
[2022-04-16] MEDS: RIFAXIMIN 550 MG TABLET PO SCH ×2 (09:37→21:34)
[2022-04-16] MEDS: MAGNESIUM OXIDE 400 MG TABLET PO SCH (09:37)
[2022-04-16 11:30] VITALS: BP_SYST 145
[2022-04-16] MEDS: METOCLOPRAMIDE HCL 10 MG/2 ML VIAL IVP SCH ×2 (13:02→22:46)
--- NOTE | 2022-04-16 13:29 | NUR ---
[place] [phone]all information given and FAXed for transfer to [place].
[2022-04-16] MEDS: cefTRIAXone 1 GM in D5W 50 ML IV SCH (13:50)
[2022-04-16] MEDS: NACL 0.9% 1,000 ML IV SCH (14:00)
[2022-04-16 15:20] VITALS: BP_SYST 116
--- NOTE | 2022-04-16 16:30 | NUR ---
anxiety patient informed BRICK MASON in amharic that she is feeling anxious and requested medication
[2022-04-16] MEDS: LORazepam 2 MG/ML VIAL IVP PRN (16:38)
--- NOTE | 2022-04-16 18:02 | NUR ---
register case managemnt spoke with Radha from [place], gave report on patient. Per Radha they will attempt to transfer patient to [facility] sometime nataly.
--- NOTE | 2022-04-16 18:28 | NUR ---
Nutrition Note: RD s/w pts RN concerning TPN and elevated BG values. RD informed RN of nutrition recommendations from 04/15. RD inquired if there have been discussions on feeding tubes and suggested an NJ tube since pt has been experiencing N/V. Per RN, one of the MDs has recently recommended considering GT placement for poor oral intake. RD rounded to patient room and s/w patients grandson at bedside. RD offered nutrition education on the different types of feeding tubes and nutritional benefits of TF for pts with poor PO. RD informed pt grandson that if deemed safe, pts can still eat and enjoy meals with their family, but their main nutrition comes from TF. RD wanted to ensure the pt and family can make an informed decision regarding nutrition moving forward. RD encouraged pt grandson and family to ask for the RDs if they have any further questions/concerns about TF or nutrition. Analilia Marshall MPH, JOVANNYN Addendum: 04/17/22 at [address] RD called pt's daughter, Matiled Titus to F/U about any nutritional questions in regarding to PEG/EN support. She stated they are no interested at this time and would like to continue TPN as is. Per EMR review today, pt has been having N and physician suggested CL diet. No new orders for CL diet placed at this time. PO intakes continue negligible. BG continue to trend high, BG 351 H and POC BG [address] will F/U primary RN. Also, pt is awaiting transfer to contracted facility, [facility].
--- NOTE | 2022-04-16 19:00 | NUR ---
Patient did not eat meal. Attempted to feed patient, offered to assist and she still declined, family at bedside and stated she is on TPN. Tried all attempts to feed. pt ate 0% of meal.
--- NOTE | 2022-04-16 19:50 | NUR ---
closing note Provided SBAR to night RN. Patient in bed, respirations even, non labored, bed in low and locked position, call light within reach. Bed alarm on. TPN and Lipids running as ordered. Family is bedside. Endorsed to night RN. that [facility] is looking for a bed and may be transfered tonight.
[2022-04-16 20:00] VITALS: BP_SYST 128
--- NOTE | 2022-04-16 20:00 | NUR ---
PT IS AWAKE AND CONFUSED. ROOM AIR. FAMILY ON THE BED SIDE
[2022-04-16] MEDS ORDERED: SODIUM ACETATE IV SCH ×10 (21:00)
[2022-04-16] MEDS ORDERED: [UNRECOGNIZED DRUG - OTHER] IV SCH ×10 (21:00)
[2022-04-16] MEDS ORDERED: TPN CENTRAL IV SCH ×10 (21:00)
[2022-04-16] MEDS ORDERED: POTASSIUM ACETATE IV SCH ×10 (21:00)
[2022-04-16] MEDS ORDERED: K PHOS IV SCH ×10 (21:00)
[2022-04-16] MEDS: ATORVASTATIN 20 MG TABLET PO SCH (21:34)
[2022-04-16] MEDS: MIRTAZAPINE 15 MG TABLET PO SCH (21:34)
[2022-04-16] MEDS: FAT EMULSIONS 250 ML IV SCH (22:36)
[2022-04-16] MEDS: INSULIN GLARGINE 100 UNITS/ML, 10 ML VIAL SUBCUT SCH (22:37)
--- NOTE | 2022-04-17 | NUR ---
PT HAS EPISODE OF COUGHING WITH PLEM.
[2022-04-17 00:05] VITALS: BP_SYST 144
--- NOTE | 2022-04-17 03:00 | NUR ---
CALLED DR MARTEL, TO GET THE ORDER FOR COUGH MEDICINE
[2022-04-17] MEDS ORDERED: PROMETHAZINE HCL/CODEINE 6.25-10 mg/5 mL UDC PO PRN (04:00)
[2022-04-17] MEDS: NACL 0.9% 1,000 ML IV SCH (06:40)
[2022-04-17] MEDS: METOCLOPRAMIDE HCL 10 MG/2 ML VIAL IVP SCH ×2 (06:52→11:53)
[2022-04-17] MEDS: LEVOTHYROXINE SODIUM 0.088 MG TABLET PO SCH (06:58)
[2022-04-17] MEDS: INSULIN REGULAR, HUMAN 100 UNITS/ML, 3 ML VIAL (humuLIN R) SUBCUT PRN ×3 (07:05→16:50)
[2022-04-17 08:00] VITALS: BP_SYST 136
[2022-04-17] MEDS ORDERED: guaiFENesin/DEXTROMETHORPHAN 10 ML UDC PO PRN (08:30)
[2022-04-17 08:34] LABS: ALANINE AMINOTRANSFERASE 60 U/L (12-78); ALBUMIN 1.7 g/dL (3.4-4.8); ANION GAP 6 (5-15); ASPARTATE AMINOTRANSFERASE 64 U/L (10-37); CALCIUM 7.7 mg/dL (8.4-11.0); CHLORIDE 106 mmol/L (98-107); CREATININE 1.28 mg/dL (0.55-1.30); GLUCOSE 351 mg/dL (70-99); PHOSPHORUS 2.7 mg/dL (2.7-4.5); UREA NITROGEN, BLOOD 56 mg/dL (8-21)
[2022-04-17 08:47] LABS: BASOPHILS % (AUTO) 0.2 % (0.0-2.0); EOSINOPHILS # (AUTO) 0.3 K/uL (0.0-0.4); EOSINOPHILS % (AUTO) 2.5 % (0.0-4.0); HEMATOCRIT 27.8 % (36-48); HEMOGLOBIN 9.4 g/dL (12.0-16.0); LYMPHOCYTES # (AUTO) 1.1 K/uL (1.0-5.5); MEAN CORPUSCULAR HEMOGLOBIN 38 pg (27-31); MEAN CORPUSCULAR HGB CONC 34 % (32-36); MEAN CORPUSCULAR VOLUME 114 fL (79.0-98.0); MONOCYTES # (AUTO) 1.4 K/uL (0.0-1.0); MONOCYTES % (AUTO) 12.3 % (1.7-9.3); NEUTROPHILS # (AUTO) 8.2 K/uL (1.8-7.7); RED BLOOD CELL COUNT(AUTO) 2.45 MIL/uL (4.2-6.2); RED CELL DISTRIBUTION WIDTH 17.4 % (9.0-15.0)
[2022-04-17] MEDS ORDERED: LACTULOSE 20 GM/30 ML UDC PO SCH (09:00)
[2022-04-17] MEDS: MAGNESIUM OXIDE 400 MG TABLET PO SCH (09:00)
[2022-04-17 09:37] LABS: PLATELET COUNT (AUTO) 45 K/uL (130-430)
[2022-04-17] MEDS: CYANOCOBALAMIN (VITAMIN B-12) 1,000 MCG TABLET PO SCH (11:31)
[2022-04-17] MEDS: CHOLECALCIFEROL (VITAMIN D3) 2,000 UNIT TABLET PO SCH (11:31)
[2022-04-17] MEDS: GABAPENTIN 100 MG CAPSULE PO SCH (11:31)
[2022-04-17] MEDS: RIFAXIMIN 550 MG TABLET PO SCH (11:31)
[2022-04-17 12:00] VITALS: BP_SYST 134
[2022-04-17] MEDS ORDERED: LevALBUTEROL HCL 1.25 MG/0.5 ML *CONC.* VIAL.NEB (XOPENEX CONC.) INH PRN (12:15)
[2022-04-17] MEDS: cefTRIAXone 1 GM in D5W 50 ML IV SCH (12:27)
--- NOTE | 2022-04-17 14:41 | NUR ---
Spoke with Alisson from [facility] and updated on patient's vitals, latest labs. Awaiting bed from [facility].
[2022-04-17 16:00] VITALS: BP_SYST 128
--- NOTE | 2022-04-17 16:17 | NUR ---
Nutrition Note JOVANNY called pt's daughter, Matilde Titus to F/U about any nutritional questions in regards to PEG/EN support. She stated they are not interested at this time and would like to continue TPN as is. Per EMR review today, pt has been having N and physician suggested CL diet. No new orders for CL diet placed at this time. PO intakes continue negligible. BG continue to trend high, BG 351 H and POC BG [address] will F/U primary RN. Also, pt is awaiting transfer to contracted facility, [facility]. Addendum: 04/17/22 at [address] JOVANNY called [facility] to speak w/ pt's primary RN -- however, his extension was busy. Stremor provided RN's extension, [phone]. JOVANNY to F/U. Addendum: 04/17/22 at [address] Pt's RN happened to visit FNS dept to brass pickler a beverage item for a different pt -- RD inquired about plans for CL diet for dinner -- he stated he would input new diet order for dinner tonight for physician. RD also discussed conversation between pt's daughter and this RD. RN confirmed that pt is eating very little, and has been feeling tired today. He reported that he will continue to encourage PO intakes as well as use of ONS Ensure Clear.
--- NOTE | 2022-04-17 17:04 | NUR ---
Patient has a bed at [facility]: Room [address] Roa. Number to call for report is: [phone] after 7:30 pm, and transport with [facility] between 7:30 pm-8 pm. [facility] is Megan
[2022-04-17 17:05] VITALS: BP_SYST 136
[2022-04-17 18:55] VITALS: BP_SYST 134
--- NOTE | 2022-04-17 19:08 | NUR ---
Attempted to call for report at [facility] at [phone]. No response
--- NOTE | 2022-04-17 19:49 | NUR ---
CALLED AND GAVE REPORT TO [place] JACKLYN WOODS AT [phone] SPOKE WITH LAURA. ALL QUESTIONS ANSWERED
[2022-04-17] MEDS ORDERED: K PHOS IV SCH ×10 (21:00)
[2022-04-17] MEDS ORDERED: TPN CENTRAL IV SCH ×10 (21:00)
[2022-04-17] MEDS ORDERED: SODIUM ACETATE IV SCH ×10 (21:00)
[2022-04-17] MEDS ORDERED: POTASSIUM ACETATE IV SCH ×10 (21:00)
[2022-04-17] MEDS ORDERED: [UNRECOGNIZED DRUG - OTHER] IV SCH ×10 (21:00)
--- NOTE | 2022-04-19 07:31 | NUR ---
PHYSICAL THERAPY CO-SIGN The Physical Therapy Progress Notes documented by Residential Property Manager have been reviewed. Reviewed/Co-Signed by: Juan F Carmona Documentation Done by: ANUSHKA WINKLER PTA Addendum: 04/19/22 at 0732 by Juan F Carmona PT Amended: Links added.
== END 2022-04-17 19:30 | disposition short-term general hospital (02) | DRG 441 ==
LOC: SED 12:44 → STU 17:53 → SMU 04-13 15:58
PROVIDERS: ADMIT Internal Medicine; ATTEND Internal Medicine
PROC: 05JYXZZ Inspection of Upper Vein, External Approach (ICD-10-PCS; principal; 2022-04-11)
PROC: B54MZZA Ultrasonography of Right Upper Extremity Veins, Guidance (ICD-10-PCS; 2022-04-11)
PROC: 02HV33Z Insertion of Infusion Device into Superior Vena Cava, Percutaneous Approach (ICD-10-PCS; 2022-04-12)
PROC: B548ZZA Ultrasonography of Superior Vena Cava, Guidance (ICD-10-PCS; 2022-04-12)
DX: K76.82 Hepatic encephalopathy (principal); E43 Unspecified severe protein-calorie malnutrition; G93.41 Metabolic encephalopathy; N17.0 Acute kidney failure with tubular necrosis; R65.11 Systemic inflammatory response syndrome (SIRS) of non-infectious origin with acute organ dysfunction; E87.0 Hyperosmolality and hypernatremia; J81.1 Chronic pulmonary edema; R18.8 Other ascites; K74.60 Unspecified cirrhosis of liver; E78.5 Hyperlipidemia, unspecified; D63.1 Anemia in chronic kidney disease; E03.9 Hypothyroidism, unspecified; E86.0 Dehydration; Z20.822 Contact with and (suspected) exposure to COVID-19; E11.40 Type 2 diabetes mellitus with diabetic neuropathy, unspecified; F32.A Depression, unspecified; F03.90 Unspecified dementia, unspecified severity, without behavioral disturbance, psychotic disturbance, mood disturbance, and anxiety; I12.9 Hypertensive chronic kidney disease with stage 1 through stage 4 chronic kidney disease, or unspecified chronic kidney disease; E11.22 Type 2 diabetes mellitus with diabetic chronic kidney disease; N18.9 Chronic kidney disease, unspecified; E11.43 Type 2 diabetes mellitus with diabetic autonomic (poly)neuropathy; K31.84 Gastroparesis; Z88.2 Allergy status to sulfonamides; Z79.1 Long term (current) use of non-steroidal anti-inflammatories (NSAID); Z79.899 Other long term (current) drug therapy; Z68.23 Body mass index [BMI] 23.0-23.9, adult; Z95.2 Presence of prosthetic heart valve; Z95.0 Presence of cardiac pacemaker; Z90.710 Acquired absence of both cervix and uterus; Z87.440 Personal history of urinary (tract) infections
CPT/HCPCS: 36415; 36600; 70450-TC; 71045; 74018; 76376; 76700-TC; 80048; 80053; 80061; 80074; 80307; 81003; 82043; 82140; 82570; 82803-TC; 82962; 83036; 83605; 83690; 83735; 83880; 84100; 84302; 84443; 84478; 84484; 85025; 85610-TC; 85730-TC; 87040; 92610-GN; 93005; 93306; 94640; 94760; 96361; 96365; 96375; 97110-GP; 97530-GP; 99285; C1751; G0378; J0696; J1644; J1815; J2060; J2405; J2765; J3430; J3475; J3490; J7030; J7042; J7050; J7060; J7612